=== PATIENT | female | born 1955 | race African-American/Black ===

== ENCOUNTER 2018-10-13 10:42 | Outpatient (CLI) | payer MEDICARE ==
--- NOTE | 2018-10-13 11:36 | RAD ---
TWO VIEWS LEFT KNEE: History: Pain. Comparison: None. FINDINGS: Moderate tricompartment degenerative change. No joint effusion. No fracture or malalignment. IMPRESSION: Moderate tricompartment degenerative change. POS: ANNIA
== END 2018-10-13 10:43 | disposition home or self-care (01) ==
LOC: SCSRAD 10:42
PROVIDERS: ATTEND Nurse Practitioner Family
DX: M25.562 Pain in left knee (principal); M17.12 Unilateral primary osteoarthritis, left knee

== ENCOUNTER 2020-07-17 08:01 | Outpatient (CLI) | payer MEDICARE ==
[2020-07-18 09:25] LABS: SARS-CoV-2 MS2 Positive; SARS-CoV-2 N Gene Negative; SARS-CoV-2 S Gene Negative; SARS-CoV-2 by NAA Not Detected (NotDetected); SARS-CoV-2 orf1ab Negative
== END 2020-07-17 08:02 | disposition home or self-care (01) ==
LOC: LABBT 08:01
PROVIDERS: ATTEND Urology
DX: Z01.812 Encounter for preprocedural laboratory examination (principal); Z20.828 Contact with and (suspected) exposure to other viral communicable diseases; N15.1 Renal and perinephric abscess
CPT/HCPCS: 86850; 86900; 86901; 87635; U0003

== ENCOUNTER 2020-07-17 17:00 | Inpatient (IN) | payer MEDICARE ==
[2020-07-20] MEDS ORDERED: Calcium Chloride 1 GM/10 ML Abboject SYRINGE ONE (10:27)
[2020-07-20] MEDS ORDERED: Dexamethasone 20 MG/5 ML VIAL ONE (10:27)
[2020-07-20] MEDS ORDERED: Glycopyrrolate 0.2 MG/ML 5 ML SYRINGE ONE ×2 (10:27)
[2020-07-20] MEDS ORDERED: Rocuronium Bromide 10 MG/ML (10ML VIAL) ONE (10:27)
[2020-07-20] MEDS ORDERED: Ondansetron PF 4 MG/2 ML Vial ONE (10:27)
[2020-07-20] MEDS ORDERED: Lidocaine 1% PF 5 ML VIAL ONE (10:27)
[2020-07-20] MEDS ORDERED: PHENYLEPHRINE-NS 100 MCG/ML 10 ML SYRINGE ONE (10:27)
[2020-07-20] MEDS ORDERED: ePHEDrine/0.9% NaCl/PF SYRINGE 50 mg/10 ml ONE (10:27)
[2020-07-20] MEDS ORDERED: PROPOFOL 200 MG/20 ML VIAL ONE (10:27)
[2020-07-20] MEDS ORDERED: cefOXitin Sodium/Dextrose 2 GM/50 ML BAG ONE ×2 (11:25→16:19)
[2020-07-20] MEDS ORDERED: Phenylephrine 10 MG/ML VIAL ONE (12:34)
[2020-07-20] MEDS ORDERED: Fentanyl 250 MCG/5 ML VIAL ONE (12:34)
[2020-07-20] MEDS ORDERED: Lidocaine 2% Jelly 5 ML TUBE ONE (12:34)
[2020-07-20] MEDS ORDERED: Midazolam HCl 5 mg/5 ml Vial ONE (15:45)
[2020-07-20] MEDS ORDERED: Neomycin-Polymyxin 1 ML AMP ONE ×2 (15:52→15:54)
[2020-07-20] MEDS ORDERED: DOPamine 400 MG/D5W 250 ML 250 ML ONE (16:09)
[2020-07-20] MEDS ORDERED: diphenhydrAMINE 50 MG/ML VIAL IVP PRN (16:47)
[2020-07-20] MEDS ORDERED: hydrALAZINE 20 MG/ML VIAL SLOW IVP PRN (16:47)
[2020-07-20] MEDS ORDERED: Zolpidem Tartrate 5 MG TAB PO PRN (16:47)
[2020-07-20] MEDS ORDERED: Ondansetron PF 4 MG/2 ML Vial IVP PRN ×2 (16:47→17:45)
[2020-07-20] MEDS ORDERED: SUGAMMADEX SODIUM 200 MG/2 ML VIAL ONE (17:05)
[2020-07-20] MEDS ORDERED: Promethazine HCl 25 MG/ML VIAL IM PRN (17:24)
[2020-07-20] MEDS ORDERED: Promethazine HCl 25 MG/ML VIAL SLOW IVP PRN (17:24)
[2020-07-20] MEDS ORDERED: HYDROmorphone 2 MG/ML VIAL SLOW IVP PRN (17:24)
[2020-07-20] MEDS ORDERED: Ondansetron HCl/PF 4 MG/2 ML Vial IVP PRN (17:24)
[2020-07-20] MEDS ORDERED: Fentanyl 100 MCG/2 ML VIAL ONE ×2 (17:29→17:56)
[2020-07-20] MEDS ORDERED: diphenhydrAMINE 50 MG/ML VIAL IM/IV PRN (17:45)
[2020-07-20] MEDS ORDERED: Morphine Sulfate 100 MG in Dextrose 5% in Water 98 ML IV SCH (17:45)
[2020-07-20] MEDS ORDERED: diphenhydrAMINE 25 MG CAP PO PRN (17:45)
[2020-07-20] MEDS ORDERED: Naloxone HCl 0.4 mg/ml Vial IV PRN (17:45)
[2020-07-20] MEDS ORDERED: Gabapentin 300 MG CAP PO SCH (17:45)
[2020-07-20] MEDS ORDERED: Gabapentin 300 MG CAP ONE (19:08)
[2020-07-20] MEDS: Famotidine/PF 20 mg/2ml Vial SLOW IVP SCH (21:44)
[2020-07-20] MEDS: Docusate 100 MG CAP PO SCH (21:44)
[2020-07-20] MEDS: Gabapentin 300 MG CAP PO SCH (21:44)
[2020-07-20] MEDS: Sodium Chloride 0.9% 1,000 ML IV SCH (22:20)
--- NOTE | 2020-07-20 23:17 | OP ---
DATE OF PROCEDURE: 07/20/2020 PREOPERATIVE DIAGNOSIS: Left renal abscess, xanthogranulomatous pyelonephritis kidney. POSTOPERATIVE DIAGNOSES: Left renal abscess, xanthogranulomatous pyelonephritis kidney. PROCEDURES PERFORMED: Simple left nephrectomy, abdominal washout, splenectomy. ANESTHESIA: General. COMPLICATIONS: Injury to splenic vein, requiring splenectomy. OXYGRAPH OPERATOR SURGEON: Lionel Herron MD SPECIMENS: Spleen, left kidney. BLOOD LOSS: 400 mL. DESCRIPTION OF PROCEDURE: After informed consent, the patient was taken to the operating room, transferred to the table on her own power. Anesthesia was established. A time-out was performed ensuring the correct patient, site, and procedure. Preoperative antibiotics were administered. She was prepped and draped in the supine position. I began by making an anterior subcostal incision on the left side, which was carried down to fascia with electrocautery. Fascia was then carefully entered and opened for the entirety of the incision, which was extended just across midline. Small bowel was packed medially. The colon was noted to be densely adherent to the anterior surface of the kidney. This was dissected carefully off the kidney. Once I was able to identify Gerota fascia, we were able to completely deflect the colon. We then attempted to bluntly dissect over the superior aspect of the kidney, however, encountered bleeding, which were determined to be from the splenic vein. This was clamped and packed away. I was able to open Gerota's and dissect down upon the renal hilum, which was not densely adherent. The renal vein was circumferentially dissected and controlled with a stapler. The artery was then identified, dissected, and controlled with stapler as well. The lower pole of the kidney was then developed using electrocautery and LigaSure. I was then able to trace up along the psoas muscle superiorly. The superior pole of the kidney was developed using electrocautery and LigaSure to control the adrenal vein. The kidney was then completely mobilized requiring cautery to take down the previous nephrostomy tube site. The kidney was then passed off the specimen. An area of necrotic tissue in the posterior superior aspect was removed with LigaSure and included with specimen. The renal fossa was copiously irrigated with 2 L of saline. The first liter included irrigation. We then called Dr. Flores to perform a splenectomy. This will be dictated separately. The colon and small bowel were then inspected, noting no injuries. There was no active bleeding and so a drain was brought out through the left lower quadrant with the tail of the drain into the renal fossa. Omentum was replaced over the intestines. Fascia was closed in 2 layers with PDS suture. Skin was then closed with karson leaving enough space for Telfa leonides. This was then dressed with gauze and tape. She was then awoken from anesthesia, transferred back to her hospital bed, and taken to PACU in stable condition, where she will be admitted overnight. Job ID: [id number]
[2020-07-21] MEDS: cefOXitin Sodium/Dextrose,Iso 2 GM in Premix Bag 1 BAG IVPB SCH ×4 (00:40→23:56)
[2020-07-21 01:45] VITALS: BMI 27.6
[2020-07-21] MEDS: Sodium Chloride 0.9% 1,000 ML IV SCH ×4 (02:05→23:52)
[2020-07-21 06:41] LABS: Hemoglobin 9.1 g/dL (12.0-16.0); Mean Corpuscular HGB CONC 33.7 g/dL (32.0-36.0); Mean Corpuscular Hemoglobin 30.9 pg (27.0-31.0); Mean Corpuscular Volume 91.6 fL (78.0-98.0); Mean Platelet Volume 6.4 fL (7.4-10.4); Platelet Count 209 thou/uL (130-400); Red Blood Cell (RBC) Count 2.93 mill/uL (4.20-5.40); White Blood Cell (WBC) Count 33.3 thou/uL (4.8-10.8)
[2020-07-21 06:48] LABS: Anion Gap 11 mmol/L (10-20); BUN (Urea Nitrogen) 11 mg/dL (9.8-20.1); Calc. Creatinine Clearance 71 mL/min (70-130); Calcium 8.2 mg/dL (7.8-10.44); Carbon Dioxide 22 mmol/L (23-31); Chloride 110 mmol/L (98-107); Estimated GFR-MDRD 67; Glucose 187 mg/dL (80-115); Potassium 4.5 mmol/L (3.5-5.1); Sodium 138 mmol/L (136-145)
--- NOTE | 2020-07-21 08:24 | OP ---
DATE OF PROCEDURE: 07/20/2020 PREOPERATIVE DIAGNOSIS: Splenic hemorrhage. POSTOPERATIVE DIAGNOSIS: Splenic hemorrhage. PROCEDURE PERFORMED: Splenectomy. INDICATIONS FOR PROCEDURE: A 64-year-old woman undergoing urological procedure. I was asked to consult intraoperatively for splenectomy due to incidental splenic hemorrhage. DESCRIPTION OF OPERATION: The patient is already under anesthesia with open abdomen. I placed 2 laparotomy packs above the spleen to have this elevated. Two short gastric arteries were divided between clamps, right next to the superior pole of the spleen and ligated with stick tie of 3-0 silk. A clamp placed across the splenic hilum and spleen was amputated and passed off the operative field for formal transmission to Pathology. The hilar vessels were then ligated with a stick tie of 2-0 silk and reinforced with a clip. The splenic fossa was inspected for good hemostasis. The pancreatic tail was kept off harm's way. I turned the patient over to Dr. Vyas who continued with her urological procedure. Job ID: [id number]
[2020-07-21] MEDS ORDERED: Dextrose 50% Abboject 50 ML SYRINGE SLOW IVP PRN (08:52)
[2020-07-21] MEDS ORDERED: Dextrose 5% in Water 1,000 ML IV PRN (08:52)
[2020-07-21] MEDS ORDERED: Insulin Regular 300 UNITS/3 ML VIAL SC PRN (08:52)
[2020-07-21] MEDS ORDERED: Prevnar 13-Val Conj/PF 0.5 ML SYRINGE IM ONE (09:00)
--- NOTE | 2020-07-21 09:16 | PRG ---
DATE OF SERVICE: 07/21/2020 SUBJECTIVE: No acute events overnight. Reports [id number] pain along her incision. She is not having any further flank pain. No nausea, vomiting, trouble breathing, chest pains, or headaches. She has been up walking. No flatus or bowel movements yet. OBJECTIVE: VITAL SIGNS: Afebrile. Vitals are stable. Drain output 115. Urine output overnight 925. ABDOMEN: Soft, nondistended, appropriately tender. Dressing in place. Not soiled. : Aquino catheter in place draining yellow urine. EXTREMITIES: No peripheral edema. LABORATORY DATA: Reviewed. Hemoglobin 9.1. Creatinine 1.01. ASSESSMENT AND PLAN: Postop day 1, left simple nephrectomy for xanthogranulomatous pyelonephritis kidney with renal abscess, splenectomy. She will be receiving post splenectomy vaccinations through the weekend. Routine postop care, out of bed, ambulate, Aquino out, incentive spirometry, deep venous thrombosis prophylaxis. Continue antibiotics given her renal abscess. Glucose 187, starting Accu-Cheks, and may start sliding scale insulin. Job ID: [id number]
[2020-07-21] MEDS: Docusate 100 MG CAP PO SCH ×2 (09:41→20:45)
[2020-07-21] MEDS: Enoxaparin Sodium 40 MG/0.4 ML SYRINGE SC SCH (09:42)
[2020-07-21] MEDS: Gabapentin 300 MG CAP PO SCH ×3 (09:42→20:45)
[2020-07-21] MEDS: Bisoprolol Fumarate/HCTZ 10 mg/6.25 mg Tablet PO SCH (09:42)
[2020-07-21] MEDS: Famotidine/PF 20 mg/2ml Vial SLOW IVP SCH ×2 (09:43→20:45)
[2020-07-21 09:48] LABS: Band 16 % (5-11); Lymphocytes 3 % (21-51); MDiff Complete? YES; Monocytes 3 % (0-10); Neutrophil 78 % (42-75); Platelet Morphology Comment Appears Adequate; Polychromasia SLIGHT = 2-3 cells (100X) (0-2/hpf)
[2020-07-21] MEDS ORDERED: traMADol HCl 50 MG TAB PO PRN (12:27)
[2020-07-21] MEDS ORDERED: Fentanyl 100 MCG/2 ML VIAL SLOW IVP PRN (12:28)
[2020-07-22] MEDS: Sodium Chloride 0.9% 1,000 ML IV SCH ×3 (02:53→18:31)
[2020-07-22 07:17] LABS: #Eosinphils 0.1 thou/uL (0.0-0.7); #Lymphocytes 2.9 thou/uL (1.20-3.40); #Monocytes 1.8 thou/uL (0.11-0.59); #Neutrophils 23.3 thou/uL (1.40-6.50); %Basophils 0.1 % (0.0-1.0); %Eosinophils 0.3 % (0.0-10.0); %Lymphocytes 10.3 % (21.0-51.0); %Monocytes 6.5 % (0.0-10.0); %Neutrophils 82.8 % (42.0-75.0); Mean Corpuscular Hemoglobin 30.8 pg (27.0-31.0); Mean Corpuscular Volume 93.5 fL (78.0-98.0); Mean Platelet Volume 6.5 fL (7.4-10.4); Platelet Count 218 thou/uL (130-400); RBC Distribution Width 15.5 % (11.5-14.5); Red Blood Cell (RBC) Count 2.59 mill/uL (4.20-5.40); White Blood Cell (WBC) Count 28.2 thou/uL (4.8-10.8)
[2020-07-22 07:21] LABS: Anion Gap 13 mmol/L (10-20); BUN (Urea Nitrogen) 9 mg/dL (9.8-20.1); Calc. Creatinine Clearance 76 mL/min (70-130); Calcium 7.8 mg/dL (7.8-10.44); Carbon Dioxide 18 mmol/L (23-31); Chloride 114 mmol/L (98-107); Estimated GFR-MDRD 72; Glucose 105 mg/dL (80-115); Magnesium 1.9 mg/dL (1.6-2.6); Phosphorus 2.5 mg/dL (2.3-4.7); Potassium 3.7 mmol/L (3.5-5.1); Sodium 141 mmol/L (136-145)
[2020-07-22] MEDS ORDERED: Meningococcal Vaccine 0.5ML VIAL (MENACTRA) IM ONE (08:15)
[2020-07-22] MEDS: Bisoprolol Fumarate/HCTZ 10 mg/6.25 mg Tablet PO SCH (09:59)
[2020-07-22] MEDS: Enoxaparin Sodium 40 MG/0.4 ML SYRINGE SC SCH (10:03)
[2020-07-22] MEDS: Famotidine/PF 20 mg/2ml Vial SLOW IVP SCH ×2 (10:05→20:28)
[2020-07-22] MEDS: Docusate 100 MG CAP PO SCH ×2 (10:06→20:28)
[2020-07-22] MEDS: Gabapentin 300 MG CAP PO SCH ×3 (10:06→20:29)
--- NOTE | 2020-07-22 11:37 | PRG ---
DATE OF SERVICE: 07/22/2020 SUBJECTIVE: The patient states that she is hurting quite a bit. She is having left flank pain. She still has an appetite, although it is not great. She has not passed any gas. She denies any fevers. She is not getting any worse than she was yesterday and states her pain is stable. She is just very sore. She has not really gotten up out of bed very much. OBJECTIVE: VITAL SIGNS: Temperature 98.3, pulse 75, respirations 16, blood pressure 94/60, and saturation 96% on 2 L nasal cannula. GENERAL: Appears somewhat uncomfortable and tired, but otherwise answering questions appropriately. CARDIOVASCULAR: Regular rate and rhythm. ABDOMEN: Soft, mildly tender to palpation. Nondistended. Incision is currently dressed. MAREK drain with serosanguineous fluid. GENITOURINARY: No catheter in place. EXTREMITIES: No edema. LABORATORY EVALUATION: Full set of labs are in the [employer] [facility], which I have reviewed. Of note, the patient's white count is decreased from 33,000 to 28,000, platelet count of 218. Creatinine of 0.95. ASSESSMENT AND PLAN: A 64-year-old black female, who has an infected nonfunctioning likely early XGP type kidney on the left, status post left simple nephrectomy and splenectomy due to splenic hilum injury, postoperative day 2, recovering relatively well. She is using a fair amount of narcotic pain medication to try to keep her pain controlled, which is understandable. However, this will likely cause possible ileus. I have recommended that she attempt to at least sit in a chair at minimum today if not being able to walk around, which should help try to maintain her bowel movements or bowel function. She does have Colace ordered, but I may start her on MiraLAX another day. If she is not passing any gas to try and improve her bowel function. Her white count is decreasing. She can remain on a regular diet for the time being. However, if she starts to become nauseated or starts to get abdominally distended, we will have to put her to n.p.o. with IV fluids. Otherwise, I recommended she keep her hydration up, eat only what she feels like, use her incentive spirometer and attempt to get out of bed with assistance. I will continue to follow along and make recommendations. Dr. Vyas will resume care back on Friday. Job ID: [id number]
[2020-07-22] MEDS: HYDROcodone/Acetaminophen 7.5/325 mg Tablet PO PRN ×2 (14:47→20:36)
[2020-07-22 18:44] LABS: PTT 43.7 sec (22.9-36.1)
[2020-07-22 18:48] LABS: INR-International Normal Ratio 1.3; Prothrombin Time 16.7 sec (12.0-14.7)
--- NOTE | 2020-07-22 22:31 | PRG ---
DATE OF SERVICE: 07/22/2020 SUBJECTIVE: The patient was seen during morning rounds. Awake, alert, in no distress. The patient is postop day #1 status post left nephrectomy and exploratory laparotomy with splenectomy. The patient still is not passing gas or having bowel movements. The patient's pain is currently controlled at this time. The patient is tolerating a regular diet. The patient denies any nausea or vomiting. OBJECTIVE: VITAL SIGNS: Temperature 98.3, pulse 75, respirations 16, SpO2 of 96% on room air, blood pressure 94/60. GENERAL: Well-appearing middle-aged female, awake, alert, no distress. RESPIRATORY: Good inspiratory and expiratory effort. CARDIAC: Regular rate, regular rhythm. ABDOMEN: Soft, mildly tender, nondistended. Dressing is clean, dry, and intact, MAREK drain with serosanguineous fluid. LABORATORY DATA: WBC 28.2, RBC 2.59, hemoglobin 8.0, hematocrit 24.2. Sodium 141, potassium 3.7, BUN 9, creatinine 0.95, estimated GFR 72. ASSESSMENT: 1. Postop day #1, left nephrectomy for a left renal abscess. 2. Exploratory laparotomy with splenectomy. PLAN: Diet as tolerated. Continue supportive care and pain regimen. Increase ambulation as much as possible. We will continue to monitor urinary output. Repeat labs tomorrow. Job ID: [id number]
[2020-07-23] MEDS: Sodium Chloride 0.9% 1,000 ML IV SCH ×3 (02:52→20:05)
[2020-07-23 05:56] LABS: Hemoglobin 7.3 g/dL (12.0-16.0); Mean Corpuscular HGB CONC 31.9 g/dL (32.0-36.0); Mean Corpuscular Hemoglobin 29.4 pg (27.0-31.0); Mean Corpuscular Volume 92.2 fL (78.0-98.0); Mean Platelet Volume 6.8 fL (7.4-10.4); Platelet Count 230 thou/uL (130-400); RBC Distribution Width 15.5 % (11.5-14.5); Red Blood Cell (RBC) Count 2.46 mill/uL (4.20-5.40); White Blood Cell (WBC) Count 23.5 thou/uL (4.8-10.8)
[2020-07-23] MEDS ORDERED: Acthib 0.5 ML VIAL IM ONE (08:15)
[2020-07-23] MEDS: Docusate 100 MG CAP PO SCH ×2 (09:13→20:07)
[2020-07-23] MEDS: Bisoprolol Fumarate/HCTZ 10 mg/6.25 mg Tablet PO SCH (09:14)
[2020-07-23] MEDS: Famotidine/PF 20 mg/2ml Vial SLOW IVP SCH ×2 (09:15→20:07)
[2020-07-23] MEDS: Enoxaparin Sodium 40 MG/0.4 ML SYRINGE SC SCH (09:15)
[2020-07-23] MEDS: Gabapentin 300 MG CAP PO SCH ×3 (09:15→20:08)
[2020-07-23] MEDS: HYDROcodone/Acetaminophen 7.5/325 mg Tablet PO PRN ×3 (09:23→20:06)
[2020-07-23 13:40] LABS: #Lymphocytes 3.2 thou/uL (1.20-3.40); #Monocytes 1.8 thou/uL (0.11-0.59); #Neutrophils 19.1 thou/uL (1.40-6.50); %Basophils 0.1 % (0.0-1.0); %Eosinophils 0.2 % (0.0-10.0); %Lymphocytes 13.3 % (21.0-51.0); %Monocytes 7.5 % (0.0-10.0); Hemoglobin 7.2 g/dL (12.0-16.0); Mean Corpuscular HGB CONC 32.6 g/dL (32.0-36.0); Mean Corpuscular Hemoglobin 29.7 pg (27.0-31.0); Mean Corpuscular Volume 91.3 fL (78.0-98.0); Mean Platelet Volume 6.7 fL (7.4-10.4); Platelet Count 260 thou/uL (130-400); RBC Distribution Width 15.5 % (11.5-14.5); Red Blood Cell (RBC) Count 2.41 mill/uL (4.20-5.40); White Blood Cell (WBC) Count 24.2 thou/uL (4.8-10.8)
--- NOTE | 2020-07-23 14:46 | PRG ---
DATE OF SERVICE: 07/23/2020 SUBJECTIVE: The patient states that she is doing a lot better today. She was started on oral pain medications and states this is helping better than her CUSTOMER ACCOUNT REPRESENTATIVE. She did get up and walk some, although she has not walked a lot. She is passing gas, but has not had a bowel movement. She is still tolerating a diet. OBJECTIVE: VITAL SIGNS: Temperature 99.1, pulse 107, respirations 18, blood pressure 105/62, saturation 95% on 1 L nasal cannula. GENERAL: No apparent distress. Communicative and alert. CARDIOVASCULAR: Sinus tachycardia. ABDOMEN: Soft, minimally tender to palpation, nondistended. MAREK drain is in place with serosanguineous fluid. Incision dressed. EXTREMITIES: No edema. LABORATORY EVALUATION: The full set of labs are in the [employer] system, which I have reviewed. Of note, the patient's white count is 24.2. ASSESSMENT AND PLAN: A 64-year-old black female with a large infected left kidney, status post nephrectomy and splenectomy, postoperative day #3, doing relatively well. She seems to be improving quite well. Her elevated white count may be due to her recent splenectomy or due to a possible soft tissue infection, although she is not having any fevers. I would keep a close eye on this and plan for repeat labs in the morning. Dr. Vyas will be resuming care tomorrow and can continue to follow the patient. From my standpoint, there is no need for any recurrent imaging at this time and she does have a drain in place, which should minimize risk for infections. I do feel this is most likely probably secondary to her spleen removal. She will continue her incentive spirometer and continue to ambulate, and she does appear to be having return of bowel function. Job ID: [id number]
[2020-07-24 05:35] LABS: #Eosinphils 0.1 thou/uL (0.0-0.7); #Lymphocytes 3.3 thou/uL (1.20-3.40); #Monocytes 1.7 thou/uL (0.11-0.59); #Neutrophils 18.7 thou/uL (1.40-6.50); %Basophils 0.2 % (0.0-1.0); %Eosinophils 0.3 % (0.0-10.0); %Lymphocytes 13.8 % (21.0-51.0); %Monocytes 7.1 % (0.0-10.0); %Neutrophils 78.7 % (42.0-75.0); Hemoglobin 7.3 g/dL (12.0-16.0); Mean Corpuscular HGB CONC 31.3 g/dL (32.0-36.0); Mean Corpuscular Hemoglobin 29.4 pg (27.0-31.0); Mean Corpuscular Volume 93.7 fL (78.0-98.0); Mean Platelet Volume 7.3 fL (7.4-10.4); Platelet Count 240 thou/uL (130-400); RBC Distribution Width 16.1 % (11.5-14.5); Red Blood Cell (RBC) Count 2.47 mill/uL (4.20-5.40); White Blood Cell (WBC) Count 23.8 thou/uL (4.8-10.8)
[2020-07-24 05:57] LABS: Anion Gap 12 mmol/L (10-20); BUN (Urea Nitrogen) 5 mg/dL (9.8-20.1); Calc. Creatinine Clearance 104 mL/min (70-130); Calcium 7.8 mg/dL (7.8-10.44); Carbon Dioxide 21 mmol/L (23-31); Chloride 108 mmol/L (98-107); Estimated GFR-MDRD Greater than 90; Glucose 84 mg/dL (80-115); Potassium 3.3 mmol/L (3.5-5.1); Sodium 138 mmol/L (136-145)
[2020-07-24] MEDS: Sodium Chloride 0.9% 1,000 ML IV SCH ×3 (07:26→18:22)
[2020-07-24] MEDS ORDERED: FLU VACC QS2020-21(6MOS UP)/PF 60 MCG/0.5 ML SYRINGE IM ONE (08:15)
[2020-07-24] MEDS ORDERED: Potassium Chloride 20 MEQ TAB PO SCH (08:45)
[2020-07-24] MEDS: Famotidine/PF 20 mg/2ml Vial SLOW IVP SCH ×2 (09:31→20:15)
[2020-07-24] MEDS: Gabapentin 300 MG CAP PO SCH ×3 (09:32→20:16)
[2020-07-24] MEDS: Docusate 100 MG CAP PO SCH ×2 (09:32→20:15)
[2020-07-24] MEDS: Bisoprolol Fumarate/HCTZ 10 mg/6.25 mg Tablet PO SCH (09:32)
[2020-07-24] MEDS: Enoxaparin Sodium 40 MG/0.4 ML SYRINGE SC SCH (09:32)
[2020-07-24] MEDS: HYDROcodone/Acetaminophen 7.5/325 mg Tablet PO PRN ×2 (09:36→18:21)
--- NOTE | 2020-07-24 13:31 | PRG ---
DATE OF SERVICE: 07/24/2020 SUBJECTIVE: No acute events overnight. Still reports moderate discomfort along the incision. No shortness of breath, fevers, or chest pains. OBJECTIVE: VITAL SIGNS: Afebrile. Vitals stable. Urine output has not been adequately measured. LUNGS: Unlabored breathing. Symmetric chest expansion. ABDOMEN: Soft, nondistended, appropriately tender. Incision healthy. Lucy in place. Drain in position with minimal output. LABORATORY DATA: White count trending down at 23.8 today, still with left shift of 78.7. Potassium 3.3 and creatinine 0.69. ASSESSMENT AND PLAN: Postoperative day 4 of left simple nephrectomy for xanthogranulomatous pyelonephritis kidney and abscess. Routine postop care, out of bed, ambulate, pain control, DVT and GI prophylaxis. I would like the drain to remain until her leukocytosis resolves further. DISPOSITION: I anticipate she will be discharged home within the next 48 hours. Job ID: [id number]
[2020-07-24 14:13] LABS: Actual Bicarbonate (HCO3a) 21.3 mEq/L (22-28); Analyzer IN Cardio OR; Base Excess (BEa) -3.8 mEq/L (-2.0 to +3.0); CO2 Tension 38.7 mmHg (35.0-45.0); Calcium, Ionized (arterial) 1.63 mmol/L (1.12-1.30); Carboxyhemoglobin (COHb) 0.7 gm% (0.0-3.0); Hemoglobin (Hb) 8.5 g/dL (12.0-16.0); O2 Tension (PaO2), arterial 198.6 mmHg (> 80.0); Potassium - ABG Lab 3.38 mmol/L (3.70-5.30); pH, Arterial 7.36 (7.35-7.45)
[2020-07-24 14:21] LABS: Puncture Site Arterial Line
[2020-07-25] MEDS: Sodium Chloride 0.9% 1,000 ML IV SCH (05:44)
[2020-07-25 05:58] LABS: #Eosinphils 0.1 thou/uL (0.0-0.7); #Lymphocytes 3.1 thou/uL (1.20-3.40); #Monocytes 1.4 thou/uL (0.11-0.59); %Eosinophils 0.4 % (0.0-10.0); %Lymphocytes 14.2 % (21.0-51.0); %Monocytes 6.4 % (0.0-10.0); Mean Corpuscular Hemoglobin 29.3 pg (27.0-31.0); Mean Corpuscular Volume 91.7 fL (78.0-98.0); Mean Platelet Volume 6.9 fL (7.4-10.4); Platelet Count 319 thou/uL (130-400); RBC Distribution Width 16.2 % (11.5-14.5); White Blood Cell (WBC) Count 21.5 thou/uL (4.8-10.8)
[2020-07-25 06:18] LABS: Anion Gap 14 mmol/L (10-20); BUN (Urea Nitrogen) 6 mg/dL (9.8-20.1); Calc. Creatinine Clearance 101 mL/min (70-130); Calcium 7.7 mg/dL (7.8-10.44); Carbon Dioxide 23 mmol/L (23-31); Chloride 108 mmol/L (98-107); Estimated GFR-MDRD Greater than 90; Glucose 75 mg/dL (80-115); Sodium 142 mmol/L (136-145)
[2020-07-25 06:39] LABS: Potassium 2.9 mmol/L (3.5-5.1)
--- NOTE | 2020-07-25 07:13 | EKG ---
Test Reason : PREOP Blood Pressure : / mmHG Vent. Rate : 070 BPM Atrial Rate : 070 BPM P-R Int : 148 ms QRS Dur : 124 ms QT Int : 450 ms P-R-T Axes : 061 -13 012 degrees QTc Int : 486 ms Normal sinus rhythm Right bundle branch block Abnormal ECG No previous ECGs available Confirmed by ELIANA ROTHMAN MD ([id number]) on 07/25/2020 7:13:24 AM Referred By: HAWK Confirmed By:ELIANA ROTHMAN MD
[2020-07-25] MEDS ORDERED: Potassium Chloride 40 MEQ in Sodium Chloride 0.9% 250 ML 250 ML IVPB SCH (08:00)
[2020-07-25] MEDS: Famotidine/PF 20 mg/2ml Vial SLOW IVP SCH ×2 (09:40→20:01)
[2020-07-25] MEDS: Enoxaparin Sodium 40 MG/0.4 ML SYRINGE SC SCH (09:40)
[2020-07-25] MEDS: Bisoprolol Fumarate/HCTZ 10 mg/6.25 mg Tablet PO SCH (09:40)
[2020-07-25] MEDS: Docusate 100 MG CAP PO SCH ×2 (09:40→20:01)
[2020-07-25] MEDS: Gabapentin 300 MG CAP PO SCH ×3 (09:44→20:01)
[2020-07-25] MEDS: Potassium Chloride 40 MEQ in Sodium Chloride 0.45% 1,000 ML IV SCH ×2 (11:11→20:01)
[2020-07-25] MEDS ORDERED: Acetaminophen 500 MG TAB PO SCH (12:00)
[2020-07-25 13:41] LABS: Anion Gap 13 mmol/L (10-20); BUN (Urea Nitrogen) 6 mg/dL (9.8-20.1); Calc. Creatinine Clearance 101 mL/min (70-130); Calcium 7.7 mg/dL (7.8-10.44); Carbon Dioxide 23 mmol/L (23-31); Chloride 108 mmol/L (98-107); Estimated GFR-MDRD Greater than 90; Glucose 79 mg/dL (80-115); Potassium 3.5 mmol/L (3.5-5.1); Sodium 140 mmol/L (136-145)
--- NOTE | 2020-07-25 13:48 | PRG ---
DATE OF SERVICE: 07/25/2020 SUBJECTIVE: No acute events overnight. The patient tells me that she is feeling fatigued and unmotivated. She has been out of bed and is having bowel movements overnight. She denies flank pain, nausea, or fevers. OBJECTIVE: VITAL SIGNS: Afebrile, vitals stable. Drain 185, serosanguineous. LUNGS: Unlabored breathing, symmetric chest expansion. ABDOMEN: Soft, nondistended, appropriately tender over the incision site. SKIN: Warm and dry. No peripheral edema. LABORATORY DATA: Potassium is 2.9, this is after receiving 40 mEq oral yesterday for potassium 3.3. Hemoglobin has continued to drift slowly over the past few days, it is now 7.0. White count has improved to 21.5. ASSESSMENT: Postoperative day 5 from left simple nephrectomy for xanthogranulomatous pyelonephritis kidney with renal abscess. 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 PLAN: 1. Replacing potassium 40 mEq IV and then transitioning to half-normal saline with potassium. 2. Transfuse 1 unit after potassium today. 3. Reassess lab work this afternoon, and if the patient is stable overnight, may discharge home tomorrow. Job ID: [id number]
[2020-07-25 18:13] LABS: Hemoglobin 9.5 g/dL (12.0-16.0); Mean Corpuscular HGB CONC 33.4 g/dL (32.0-36.0); Mean Corpuscular Hemoglobin 30.6 pg (27.0-31.0); Mean Corpuscular Volume 91.6 fL (78.0-98.0); Mean Platelet Volume 7.2 fL (7.4-10.4); Platelet Count 327 thou/uL (130-400); Red Blood Cell (RBC) Count 3.09 mill/uL (4.20-5.40)
[2020-07-26] MEDS: Potassium Chloride 40 MEQ in Sodium Chloride 0.45% 1,000 ML IV SCH (06:05)
[2020-07-26 08:25] LABS: #Eosinphils 0.1 thou/uL (0.0-0.7); #Lymphocytes 2.6 thou/uL (1.20-3.40); #Monocytes 1.3 thou/uL (0.11-0.59); #Neutrophils 16.1 thou/uL (1.40-6.50); %Basophils 0.1 % (0.0-1.0); %Eosinophils 0.6 % (0.0-10.0); %Monocytes 6.6 % (0.0-10.0); %Neutrophils 79.7 % (42.0-75.0); Hemoglobin 9.3 g/dL (12.0-16.0); Mean Corpuscular Hemoglobin 29.5 pg (27.0-31.0); Mean Corpuscular Volume 91.9 fL (78.0-98.0); Mean Platelet Volume 6.9 fL (7.4-10.4); Platelet Count 386 thou/uL (130-400); Red Blood Cell (RBC) Count 3.14 mill/uL (4.20-5.40); White Blood Cell (WBC) Count 20.2 thou/uL (4.8-10.8)
[2020-07-26 08:42] LABS: Anion Gap 16 mmol/L (10-20); BUN (Urea Nitrogen) 6 mg/dL (9.8-20.1); Calc. Creatinine Clearance 98 mL/min (70-130); Carbon Dioxide 20 mmol/L (23-31); Chloride 105 mmol/L (98-107); Estimated GFR-MDRD Greater than 90; Glucose 72 mg/dL (80-115); Potassium 3.8 mmol/L (3.5-5.1); Sodium 137 mmol/L (136-145)
[2020-07-26] MEDS: Famotidine/PF 20 mg/2ml Vial SLOW IVP SCH (10:34)
[2020-07-26] MEDS: Docusate 100 MG CAP PO SCH (10:35)
[2020-07-26] MEDS: Gabapentin 300 MG CAP PO SCH (10:35)
[2020-07-26] MEDS: Enoxaparin Sodium 40 MG/0.4 ML SYRINGE SC SCH (10:35)
[2020-07-26] MEDS: Bisoprolol Fumarate/HCTZ 10 mg/6.25 mg Tablet PO SCH (10:35)
[2020-07-26 11:19] VITALS: BP 130/81; TEMP 98.6
== END 2020-07-26 15:30 | disposition home or self-care (01) | DRG 656 ==
LOC: SURG A 07-20 10:02
PROVIDERS: ADMIT Urology; ATTEND Urology
PROC: 0TT10ZZ Resection of Left Kidney, Open Approach (ICD-10-PCS; principal; 2020-07-20)
PROC: 07TP0ZZ Resection of Spleen, Open Approach (ICD-10-PCS; 2020-07-20)
DX: C64.2 Malignant neoplasm of left kidney, except renal pelvis (principal); N15.1 Renal and perinephric abscess; N11.8 Other chronic tubulo-interstitial nephritis; D76.3 Other histiocytosis syndromes; D78.02 Intraoperative hemorrhage and hematoma of the spleen complicating other procedure; Z20.828 Contact with and (suspected) exposure to other viral communicable diseases; I10 Essential (primary) hypertension; M19.90 Unspecified osteoarthritis, unspecified site; F32.9 Major depressive disorder, single episode, unspecified; Y83.8 Other surgical procedures as the cause of abnormal reaction of the patient, or of later complication, without mention of misadventure at the time of the procedure; Z90.710 Acquired absence of both cervix and uterus; Z79.899 Other long term (current) drug therapy
CPT/HCPCS: 36415; 36416; 36430; 80048; 82805; 83605; 83735; 84100; 85025; 85027; 85610; 85730; 86850; 86900; 86901; 87635; 88305; 88307; 90471; 90648; 90670; 90733; 93005; 93010; G0009; J0694; J1100; J1265; J1650; J1815; J2250; J2370; J2405; J2704; J3010; J3480; J7050; P9016; S0028; U0003

== ENCOUNTER 2020-08-17 13:53 | Inpatient (IN) | payer MEDICARE ==
[2020-08-17] MEDS ORDERED: metroNIDAZOLE 500 MG/100 ML BAG ONE (17:08)
[2020-08-17] MEDS ORDERED: Morphine 4 MG/ML VIAL ONE (17:08)
[2020-08-17] MEDS ORDERED: Ondansetron PF 4 MG/2 ML Vial ONE (17:10)
[2020-08-17] MEDS ORDERED: Cefepime 2 GM VIAL ONE (17:10)
[2020-08-17] MEDS ORDERED: Vancomycin HCl 1.25 GM in Sodium Chloride 0.9% 250 ML 250 ML IVPB ONE (17:15)
[2020-08-17 17:44] LABS: Hemoglobin 10.7 g/dL (12.0-16.0); Mean Corpuscular HGB CONC 32.5 g/dL (32.0-36.0); Mean Corpuscular Hemoglobin 30.1 pg (27.0-31.0); Mean Corpuscular Volume 92.8 fL (78.0-98.0); Mean Platelet Volume 8.1 fL (7.4-10.4); Platelet Count 479 thou/uL (130-400); Red Blood Cell (RBC) Count 3.56 mill/uL (4.20-5.40); White Blood Cell (WBC) Count 25.6 thou/uL (4.8-10.8)
[2020-08-17 18:01] LABS: Band 21 % (5-11); Lymphocytes 9 % (21-51); MDiff Complete? YES; Monocytes 10 % (0-10); Neutrophil 60 % (42-75); Platelet Morphology Comment Appears Increased; Polychromasia SLIGHT = 2-3 cells (100X) (0-2/hpf); Target Cells SLIGHT = 2-5 cells (100X) (0-1/hpf); Tear Drops SLIGHT = 2-5 cells (100X) (0-1/hpf)
[2020-08-17 18:02] LABS: INR-International Normal Ratio 1.4; Prothrombin Time 17.3 sec (12.0-14.7)
[2020-08-17 18:03] LABS: PTT 41.8 sec (22.9-36.1)
[2020-08-17 19:16] LABS: Albumin 2.7 g/dL (3.4-4.8)
[2020-08-17 19:17] LABS: Chloride 103 mmol/L (98-107); Potassium 3.3 mmol/L (3.5-5.1); Sodium 136 mmol/L (136-145)
[2020-08-17 19:18] LABS: Calcium 8.3 mg/dL (7.8-10.44)
[2020-08-17 19:19] LABS: Globulin 4.9 g/dL (2.4-3.5); Glucose 96 mg/dL (80-115); Protein, Total 7.6 g/dL (6.0-8.3)
[2020-08-17 19:20] LABS: Anion Gap 17 mmol/L (10-20); Bilirubin, Total 0.5 mg/dL (0.2-1.2); Carbon Dioxide 19 mmol/L (23-31)
[2020-08-17 19:21] LABS: Alkaline Phosphatase 102 U/L (40-110)
[2020-08-17 19:22] LABS: Calc. Creatinine Clearance 0 mL/min (70-130)
[2020-08-17 19:23] LABS: BUN (Urea Nitrogen) 14 mg/dL (9.8-20.1)
[2020-08-17 19:24] LABS: ALT (SGPT) Less than 7 U/L (8-55); AST (SGOT) 11 U/L (5-34)
[2020-08-17 19:25] LABS: Lipase 34 U/L (8-78)
[2020-08-18 00:35] VITALS: BMI 24.7
[2020-08-18] MEDS: metroNIDAZOLE 500 MG in Premix Bag 1 BAG IVPB SCH ×3 (01:11→16:16)
[2020-08-18] MEDS: Sodium Chloride 0.9% 1,000 ML IV SCH ×3 (01:12→23:19)
[2020-08-18] MEDS: Cefepime 2 GM in Sodium Chloride 0.9% 100 ML IVPB SCH ×3 (02:22→16:14)
--- NOTE | 2020-08-18 03:42 | CON ---
DATE OF CONSULTATION: 08/17/2020 CONSULTING: Emergency room. CONSULTED: Dr. Herron. REASON FOR CONSULTATION: Retroperitoneal abscess. HISTORY OF PRESENT ILLNESS: Mrs. Alves is a 64-year-old black female who is the patient of Dr. Vyas. Dr. Vyas is currently out of the office right now and I am covering for him. The patient underwent a left nephrectomy for chronic pyelonephritis and infected nonfunctional kidney on July 20, 2020. Postoperatively, she had recovered and had her MAREK removed while in the hospital and was sent home. She was doing relatively well at her postop visit with Dr. Vyas. During her followup with Dr. Vyas, she did have a knot on her left flank which burst and drained pus. Dr. Vyas had this packed and subsequently this closed and healed up. Approximately 3-4 days ago, the patient started noticing that she was having really bad left flank pain. She stated that she had significant malaise and felt really bad. She began having shortness of breath as well as pleuritic chest pain with deep inspiration. She became fatigued, weak, and nauseated with epigastric left flank, left chest, and back pain. She denied any fevers, diarrhea, palpitations, or substernal pressure. She did not have any dizziness. Her vision was normal. She denied any lower extremity edema. She called the office at which time, they notified me of these symptoms. I recommended that she get a CT scan with CBC. Her white blood cell count was elevated to 26,000, and her CT was completed, which demonstrated a large loculated left retroperitoneal fluid collection consistent with early phlegmon. Additionally, she had a large left pleural effusion. Given these findings, I recommended she proceed to the emergency room for admission and treatment. Upon arrival to the ER, on my discussion with the patient, she states she continues to feel really bad. She continues to have the aforementioned symptoms including the left-sided chest pain, shortness of breath, with pleuritic pain on inspiration, left flank, abdominal, epigastric, and back pain. She continues to be nauseated. She states she has hardly ate anything. Nothing so far has made her feel any better. Her pain is currently an 8/10. ALLERGIES: NONE. HOME MEDICATIONS: Busy 5/325 mg one tab p.o. q.4 hours p.r.n. pain and a blood pressure medication, patient states that she does not know what that is. PAST MEDICAL HISTORY: Significant for hypertension, nephrolithiasis, renal cell carcinoma in the infected kidney which was removed. PAST SURGICAL HISTORY: 1. Nephrostomy tube placement. 2. Shoulder surgery. 3. Right knee replacement. 4. Hysterectomy. 5. Appendectomy. 6. Left nephrectomy with splenectomy. SOCIAL HISTORY: The patient denies alcohol abuse, illicit drug use, or tobacco abuse. FAMILY HISTORY: Noncontributory. REVIEW OF SYSTEMS: A 12-point review of systems included in the HPI. Remainder of 12-point review of systems reviewed with the patient and negative other than what was commented on the HPI. PHYSICAL EXAMINATION: VITALS: Temperature 98.1, pulse 96, respirations 16, blood pressure 109/62, saturations 98% on room air. GENERAL: Appears ill. Answering questions appropriately. Well nourished, well developed. HEENT: Normocephalic, atraumatic. Pupils are symmetric and round. Sclerae nonicteric. Trachea midline. Moist mucous membranes. CARDIOVASCULAR: Regular rate and rhythm. Normal S1, S2. Symmetric pulses. CHEST: Symmetric expansion of lungs. Nonlabored breathing currently. Diminished breath sounds on the left side more so than on the right with crackles more so on the left. There is significant left-sided chest wall tenderness. ABDOMEN: Incision is healing very well without evidence of infection, hernia, or dehiscence. Significant tenderness to palpation on the left flank and left upper quadrant with guarding, nondistended, soft. Nephrostomy site is well healed. The MAREK site is also well healed. : Exam is deferred at this time. EXTREMITIES: No clubbing, cyanosis, or edema. MUSCULOSKELETAL: No joint deformities or joint erythema noted. Full range of motion. SKIN: Warm, dry. No rash or lesions. No open wounds. Good turgor. LYMPH: No obvious lymphadenopathy in the inguinal, axillary, or supraclavicular region. NEUROLOGIC: Cranial nerves 2 through 12 grossly intact. No focal or sensory motor deficits identified. PSYCHIATRIC: Alert and oriented x3. Appropriate mood and affect. LABORATORY EVALUATION: Full set of labs are in the [employer] system which I have reviewed. Of note, the patient's white blood cell count is 25,000 with 479 platelets. Creatinine is 0.97. Amylase and lipase are normal. Troponins are also normal. Lactate is normal at 1.6. CT done August 17 earlier today demonstrates interval nephrectomy with inflammatory changes in the surgical bed with multilocular fluid collection that could potentially represent an abscess. Reactive left pleural effusion. Nonspecific enlarged retroperitoneal lymph nodes. ASSESSMENT AND PLAN: A 64-year-old black female with likely retroperitoneal phlegmon potentially turning into an abscess with significant pleuritic chest pain concerning for a possible empyema. I would recommend a thoracentesis to drain her left fluid collection since she is complaining of significant pain, discomfort, as well as pleuritic chest pains. As far as the retroperitoneal abscess, I would recommend broad-spectrum antibiotics. The ER has already initiated cefepime, Flagyl, and vancomycin, which I think is appropriate coverage. I reviewed the CT images myself and there does not appear to be any evidence of bowel leak. I have spoken with Dr. Peters in Radiology. He concurs with the findings within the CT scan. I asked him about the possibility of placing a percutaneous drain into the fluid collection, but I am concerned about the loculations and whether or not these could sufficiently be drained. He feels it would be difficult to place a percutaneous drain at this time secondary to the loculations without going transpleural, which I felt was not the best course of action. Alternatively, if the patient is improving clinically with antibiotics, repeat CT scan can be done in 24-48 hours and see if the phlegmon is consolidating into a single abscess. If this occurs, it would be amenable to percutaneous drainage. However, if the patient is decompensating or declining with worsening pain, increasing white count, fevers, hemodynamic instability or failure to improve without significant consolidation of her phlegmon, I have told the patient she will likely return to the operating room for exploration and retroperitoneal washout. Given the location of the infection, it is possible that colonic injury could occur during this procedure. As such we have elected initially to proceed with conservative measures at this time given that she is currently appearing stable other than having a lot of pain although my threshold for doing an open retroperitoneal washout would be low at this time. I have asked because she has a pleural effusion and has a relatively complicated infection that she be admitted to the hospitalist service for 24-hour monitoring. We will handle the surgical aspects. I would recommend that she be scheduled for thoracentesis tomorrow. We will keep a close eye on her retroperitoneal abscess with a low index of suspicion for proceeding with retroperitoneal washout if necessary. I will continue to cover for the patient for now. Dr. Bobby Hsu will be covering for this weekend and Dr. Jose Vyas will return to care for this patient starting on Friday. Job ID: [id number]
--- NOTE | 2020-08-18 03:48 | HP ---
REASON FOR ADMISSION: Abdominal pain. HISTORY OF PRESENT ILLNESS: This is a 64-year-old female patient, who is status post left nephrectomy. She was diagnosed with renal cell carcinoma and renal abscess, underwent open left nephrectomy for chronic pyelonephritis and renal abscess. 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 She was hospitalized between July 20 and July 26. During her stay, her white count was initially elevated, but slowly resolved. It was thought that this was due to her splenectomy. She received post splenectomy vaccination. She was discharged home and since her discharge, she has been having pain around the incisional site, but also at some point at the site of the exit wound of her drain, she developed a bump that bursts and a bloody liquid drained, then pus. She followed up with Dr. Vyas, who packed the wound area. This occurred approximately a week ago. He instructed her to remove the packing if the packing does not fall off by itself, which it did, but the patient has been complaining of left flank pain described as stabbing like in nature, worse with movements and with taking a deep breath. Also shortness of breath, especially on ambulation. Also decreased appetite. She does report night sweats, but no fevers and no chills. She does report pain radiating to her left parasternal area underneath her left breast. The pain is reproducible with palpation, she does describe inability to walk short distances due to her pain. Also, she does describe decreased ability to sleep due to the pain. She has to sit up all the time. She cannot lie flat on her back. All those symptoms were reported to her surgeon. She was advised to undergo a CT of the abdomen, which she did. She was then called and asked to present to our emergency room because of abnormal findings on her CT. The patient is currently in the ER, appears to be comfortable. Does report some pain with movements. Her blood pressure is on the low side. She does report taking her blood pressure medications today. Also, her aspirin. PAST MEDICAL HISTORY: 1. Left percutaneous nephrolithotomy in 2014. 2. Depression. 3. Arthritis of the knee. 4. Status post right knee replacement. 5. High blood pressure. 6. High cholesterol. 7. Chronic kidney disease. 8. Chronic low back pain. 9. Nephrolithiasis. 10. Nephrostomy tube placement. 11. Neuropathy. SOCIAL HISTORY: She does not smoke. Does not drink alcohol. FAMILY HISTORY: Negative for premature coronary artery disease. ALLERGIES: NO NOTE OF ANY DRUG ALLERGY. REVIEW OF SYSTEMS: All systems reviewed except the above mentioned found to be negative. PHYSICAL EXAMINATION: GENERAL: Awake, alert, oriented, does not appear in distress. VITAL SIGNS: Her blood pressure is 101/61, heart rate of 84, temperature is 98 degrees, saturating 96% on 2 L nasal cannula. HEENT: Head is nontraumatic, normocephalic. Pupils equal, reactive. Extraocular movements are intact. Nonicteric sclerae. Well-injected conjunctivae. Oral mucosa normal. Nasal mucosa normal. NECK: Supple. No adenopathy. No murmur. Thyroid is palpable. Trachea is midline. No supraclavicular adenopathy S1, S2 regular. No murmurs. No gallops. No friction rubs. No displacement of PMI. LUNGS: Decreased air entry over the left lung area. Bowel sounds positive. Tenderness on palpation of the left upper quadrant area. ABDOMEN: Soft. No lower extremity edema. No cyanosis. NEUROLOGIC: Cranial nerves 2 through 12 within normal limits. Normal motor function. Normal sensory function and reflexes. LABORATORY DATA: Blood work shows WBC of 25.6, hemoglobin of 10.7, platelets of 479, bands of 21. INR 1.4, PTT 41.8, PT 17.3. Sodium 136, potassium 3.3, bicarb of 19, creatinine 0.97. A CT of the abdomen and pelvis shows interval nephrectomy with inflammatory change in the surgical bed. There is multiloculated fluid collection in the surgical bed as above that could potentially represent an abscess in the surgical bed. Correlate with white blood count and fever. Reactive small left pleural effusion. Nonspecific enlarged retroperitoneal lymph nodes. ASSESSMENT AND PLAN: This is a 64-year-old female patient, who is status post left nephrectomy, presenting with recent drainage from her drainage tube sites, also left sided chest pain and flank pain and shortness of breath. She cannot take a full breath most likely due to irritation due to the intraabdominal process that is described in the CAT scan of the abdomen. Also does have small amount of pleural effusion, we did contact Dr. Herron of Urology. Recommendation is to consult IR to drain the pleural effusion and continue with IV antibiotics. In regard of the intraabdominal process, Urology will consult in a.m. for further recommendations. Cardiac: The patient does have history of high blood pressure. Her blood pressure is soft. Could be due to her sepsis. We will hold her blood pressure medication, she does take aspirin. We will hold that too to minimize perioperative bleeding. Infectious Disease: The patient does have intraabdominal process that could be an abscess. She did receive cefepime, vancomycin, and Flagyl. Continue with these three medications until Urology see her and give us further recommendation on how to proceed in the setting of her recent surgery. Pulmonary: The patient does have small left pleural effusion. We will ask Interventional Radiology to perform ultrasound-guided thoracocentesis to further study and investigate the nature of the fluid. For deep vein thrombosis prophylaxis, she will be on SCDs. We will hold off on using Lovenox now in case she will need any further procedures. For pain, she will be on IV morphine on an as-needed basis. I did discuss the plan of care with her. She is in agreement. Job ID: [id number]
[2020-08-18] MEDS: Vancomycin 1 GM in Premix Bag 1 BAG IVPB SCH ×2 (05:28→18:16)
[2020-08-18 05:45] LABS: SARS-CoV-2 MS2 Positive; SARS-CoV-2 N Gene Negative; SARS-CoV-2 S Gene Negative; SARS-CoV-2 by NAA Not Detected (NotDetected); SARS-CoV-2 orf1ab Negative
[2020-08-18 06:15] LABS: #Eosinphils 0.1 thou/uL (0.0-0.7); #Lymphocytes 1.8 thou/uL (1.20-3.40); #Monocytes 1.6 thou/uL (0.11-0.59); #Neutrophils 21.1 thou/uL (1.40-6.50); %Eosinophils 0.5 % (0.0-10.0); %Lymphocytes 7.1 % (21.0-51.0); %Monocytes 6.4 % (0.0-10.0); %Neutrophils 85.9 % (42.0-75.0); Hemoglobin 9.4 g/dL (12.0-16.0); Mean Corpuscular HGB CONC 31.4 g/dL (32.0-36.0); Mean Corpuscular Hemoglobin 29.8 pg (27.0-31.0); Mean Corpuscular Volume 94.9 fL (78.0-98.0); Mean Platelet Volume 7.4 fL (7.4-10.4); Platelet Count 428 thou/uL (130-400); RBC Distribution Width 14.7 % (11.5-14.5); Red Blood Cell (RBC) Count 3.17 mill/uL (4.20-5.40); White Blood Cell (WBC) Count 24.5 thou/uL (4.8-10.8)
[2020-08-18 06:21] LABS: Hemoglobin A1c 5.1 % (4.0-6.0)
[2020-08-18 06:33] LABS: Anion Gap 16 mmol/L (10-20); BUN (Urea Nitrogen) 11 mg/dL (9.8-20.1); Calc. Creatinine Clearance 73 mL/min (70-130); Calcium 8.7 mg/dL (7.8-10.44); Carbon Dioxide 20 mmol/L (23-31); Chloride 104 mmol/L (98-107); Glucose 111 mg/dL (80-115); Potassium 3.7 mmol/L (3.5-5.1); Sodium 136 mmol/L (136-145)
[2020-08-18] MEDS ORDERED: Vancomycin HCl 1.25 GM in Sodium Chloride 0.9% 250 ML 300 ML IVPB SCH (07:00)
[2020-08-18] MEDS: Bisoprolol Fumarate 5 MG TAB PO SCH (09:30)
[2020-08-18] MEDS ORDERED: Sodium Bicarbonate 2.5 MEQ/5 ML VIAL ONE (09:42)
[2020-08-18] MEDS ORDERED: Lidocaine 1% PF 5 ML VIAL ONE (09:42)
--- NOTE | 2020-08-18 11:04 | ULT ---
US Thoracentesis History: Pleural effusion Comparison: CT exam prior day Findings: Patient is rotated ultrasound suite. All questions were answered. Informed consent obtained . Timeout performed. The patient's left chest was prepped and draped in normal sterile fashion. Using ultrasound guidance the left pleural space was accessed. 480 mL of red-tinged fluid was removed. Patient tolerated the procedure well without complication. Impression: Technically successful ultrasound-guided thoracentesis.
[2020-08-18 12:05] LABS: Fluid, Protein 6.1 g/dL (Not Available)
--- NOTE | 2020-08-18 13:43 | PDOC.HOSPP ---
- Subjective Encounter Date: 08/18/20 Encounter Time: 10:45 Subjective: has severe lower chest and left upper abdomen pain, worse on movement and coughing no chest pain or sob - Objective Vital Signs & Weight: Vital Signs (12 hours) Temp Pulse Resp BP Pulse Ox 08/18/20 13:18 98.0 F 80 18 97/66 95 08/18/20 08:00 98 08/18/20 07:21 97.9 F 74 18 96/60 98 08/18/20 05:23 97.8 F 83 18 94/58 L 94 L Weight Admit Weight 153 lb 3.2 oz Weight 153 lb 3 oz I&O: 08/17/20 08/18/20 08/19/20 06:59 06:59 06:59 Intake Total 1100 Balance 1100 Result Diagrams: 08/18/20 05:33 08/18/20 05:33 Hospitalist ROS - Medication Medications: Active Medications Generic Name Dose Route Start Last Admin Trade Name Freq PRN Reason Stop Dose Admin Bisoprolol Fumarate 5 mg 08/18/20 09:00 08/18/20 09:30 Bisoprolol Fumarate 5 Mg Tab PO Not Given DAILY YESSENIA Sodium Chloride 1,000 mls @ 100 mls/hr 08/17/20 21:45 08/18/20 01:12 Normal Saline 0.9% IV 1,000 mls .Q10H YESSENIA Administration Cefepime HCl 2 gm/ Sodium 100 mls @ 200 mls/hr 08/18/20 01:00 08/18/20 08:29 Chloride IVPB 100 mls 0100,0900,1700 YESSENIA Administration Metronidazole 500 mg/ Device 100 mls @ 100 mls/hr 08/18/20 01:00 08/18/20 11:30 IVPB 100 mls 0100,0900,1700 YESSENIA Administration Vancomycin HCl 1 gm/ Device 200 mls @ 200 mls/hr 08/18/20 06:00 08/18/20 05:28 IVPB 200 mls 0600,1800 YESSENIA Administration - Exam General Appearance: awake alert Eye: PERRL, anicteric sclera ENT: no oropharyngeal lesions, moist mucosa Neck: supple, no JVD Heart: RRR, no murmur Respiratory: no wheezes, no rales Gastrointestinal: soft, non-distended, normal bowel sounds, tender to palpation Gastrointestinal - other findings: LUQ tenderness Extremities: no cyanosis, no edema Neurological: cranial nerve grossly intact, no focal deficits Psychiatric: normal affect, A&O x 3 Hosp A/P (1) Perinephric abscess Code(s): N15.1 - RENAL AND PERINEPHRIC ABSCESS Status: Acute (2) Sepsis Code(s): A41.9 - SEPSIS, UNSPECIFIED ORGANISM Status: Acute Qualifiers: Sepsis type: sepsis due to unspecified organism Sepsis acute organ dysfunction status: without acute organ dysfunction Qualified Code(s): A41.9 - Sepsis, unspecified organism (3) Renal cell cancer Code(s): C64.9 - MALIGNANT NEOPLASM OF UNSP KIDNEY, EXCEPT RENAL PELVIS Status: Acute Qualifiers: Laterality: left Qualified Code(s): C64.2 - Malignant neoplasm of left kidney, except renal pelvis (4) Chronic anemia Code(s): D64.9 - ANEMIA, UNSPECIFIED Status: Chronic (5) Moderate protein malnutrition Code(s): E44.0 - MODERATE PROTEIN-CALORIE MALNUTRITION Status: Chronic - Plan has thoracentesis with removal of reactionary red col fluid with pH of 7.6 around 480ml, prelim gm stain is -ve as well has multiloculated fluid collection in the bed of recent left nephrectomy along with splenectomy (07/20/2020) nephrectomy was done for chronic pyelonephritis but histo path showed findings of renal cell ca is on vanc, cefepime and flagyl, iv fluids encourage po intake, ensure 1 can tid /Lilliam are following patient PT blanca
[2020-08-18] MEDS: Morphine 2 MG/ML VIAL SLOW IVP PRN (13:57)
--- NOTE | 2020-08-18 18:04 | PRG ---
DATE OF SERVICE: 08/18/2020 SUBJECTIVE: The patient states that she is feeling okay. She is still having pain, although it seems to be more control today. Her vitals have been stable and she is not afebrile. She has had some nausea. OBJECTIVE: VITAL SIGNS: Temperature 98.9, pulse 95, respirations 18, blood pressure 93/59, and saturation 92% on 2 L room air. GENERAL: No apparent distress, communicative and alert. CARDIOVASCULAR: Regular rate and rhythm. CHEST: Nonlabored breathing. Symmetric expansion on lungs. Diminished breath sounds on the left. ABDOMEN: Soft, significantly tender to palpation on the left as well as left flank. Still positive guarding. No rebound. EXTREMITIES: No edema. LABORATORY DATA: On laboratory evaluation, full set of labs are in the [facility], which I have reviewed. Of note, the patient's white count is 24,000, hemoglobin of 9.4. Creatinine is 0.88. ASSESSMENT AND PLAN: A 64-year-old black female with left pleural effusion, which is symptomatic as well as left retroperitoneal abscess, which is currently loculated, not well consolidated. Her thoracentesis showed primarily a transudative type fluid. This is probably reactive secondary to the infection, which is just below the diaphragm. Hopefully, she is symptomatically better after this. I have spoken with Radiology again in attempts to see if a percutaneous drain could be placed into the retroperitoneal infection, but they feel that it would need to cross the pleura, which would likely result in potential infection within the full pleural space. As such, we have elected to monitor and see if the infection will consolidate. Obviously, if the patient is deteriorating or not improving, she may need open exploration, but this would come at significant morbidity as there will likely be intense inflammation and potential bowel injury requiring a colostomy. As such, we will attempt to avoid this if possible. Dr. Hsu will be covering over the weekend and I will give sign out to him and be available for surgery if surgery is needed. Dr. Vyas will resume care on Friday. I will order a CT scan for tomorrow morning to see if there is any change in the retroperitoneal infection. Job ID: [id number]
[2020-08-18] MEDS: Ondansetron PF 4 MG/2 ML Vial IVP PRN (23:19)
[2020-08-19] MEDS: Cefepime 2 GM in Sodium Chloride 0.9% 100 ML IVPB SCH ×3 (00:39→16:23)
[2020-08-19] MEDS: metroNIDAZOLE 500 MG in Premix Bag 1 BAG IVPB SCH ×3 (01:27→17:16)
[2020-08-19 06:29] LABS: Vancomycin, Trough 17.6 ug/mL
[2020-08-19] MEDS: Vancomycin 1 GM in Premix Bag 1 BAG IVPB SCH ×2 (06:41→18:46)
[2020-08-19] MEDS: Sodium Chloride 0.9% 1,000 ML IV SCH ×2 (06:41→16:13)
[2020-08-19] MEDS: Ondansetron PF 4 MG/2 ML Vial IVP PRN ×2 (08:43→21:38)
[2020-08-19] MEDS: Bisoprolol Fumarate 5 MG TAB PO SCH (10:03)
--- NOTE | 2020-08-19 10:34 | PRG ---
DATE OF SERVICE: 08/19/2020 This is hospital day #2. She is afebrile. Vital signs have been stable. She has some nausea, has been made a bit worse, having to drink contrast for repeat CAT scan today which she has not yet had done. She did eat food yesterday and kept it down. She is passing gas. She is still having left-sided pain. It is probably about the same as it was yesterday, not any worse. White count is about the same as it was yesterday. Her creatinine is still normal. Her culture so far negative. We will see what her CAT scan shows. Job ID: [id number]
--- NOTE | 2020-08-19 11:43 | CT ---
CT OF ABDOMEN PERFORMED WITH INTRAVENOUS CONTRAST ENHANCEMENT: HISTORY: The patient is status post left nephrectomy. Left renal abscess. COMPARISON: 08/17/2020 exam. FINDINGS: Since that prior study, the patient has undergone a left-sided thoracentesis. There is reduction of the left-sided effusion. T here is atelectatic change in the left base. There is some air present wi thin the pleural space related to the thoracentesis. I do not have any recent chest x-ray which may be helpful in evaluation, although this is probably just some minimal air related to incomplete expan [place] of the atelectatic left lung. The liver is normal in appearance. The spleen and left kidney have been removed. The multiloculated fluid collection within the left upper quadrant of the abdomen which begins at a subdiaphragmatic lo cation and extends along the pancreatic tail into the left renal bed region is felt to be stable. Th e majority of this is more subdiaphragmatic in location. Given its multiloculated appearance, there is not felt to be a percutaneously drainable area of collection. There is no air density within it. The gallbladder region appears unremarkable. Right adrenal gland and right kidney are normal. IMPRESSION: 1. Reduction in left-sided pleural effusion. There is some air present within the left pleural spac e probably related to incomplete reexpansion of the left lower lobe. 2. Multiloculated fluid collection mainly in a subdiaphragmatic location is again demonstrated It i s felt to be essentially stable as compared to the prior examination. Post left nephrectomy and left splenectomy changes are seen. POS: HANNA
[2020-08-19] MEDS ORDERED: Iopamidol-370 76% 500 ML 1 ML ONE (12:08)
--- NOTE | 2020-08-19 12:31 | PDOC.HOSPP ---
- Subjective Encounter Date: 08/19/20 Encounter Time: 12:29 Subjective: Ms. Alves was seen today in follow-up of perinephric abscess. She notes continued nausea. She also notes 7/10 pain in the area as well. - Objective Vital Signs & Weight: Vital Signs (12 hours) Temp Pulse Resp BP Pulse Ox 08/19/20 07:32 99.0 F 85 16 107/70 95 08/19/20 04:00 98.8 F 82 20 106/67 95 Weight Admit Weight 153 lb 3.2 oz Weight 153 lb 3 oz I&O: 08/18/20 08/19/20 08/20/20 06:59 06:59 06:59 Intake Total 1100 2800 Balance 1100 2800 Result Diagrams: 08/18/20 05:33 08/18/20 05:33 Hospitalist ROS - Medication Medications: Active Medications Generic Name Dose Route Start Last Admin Trade Name Freq PRN Reason Stop Dose Admin Bisoprolol Fumarate 5 mg 08/18/20 09:00 08/19/20 10:03 Bisoprolol Fumarate 5 Mg Tab PO Not Given DAILY YESSENIA Sodium Chloride 1,000 mls @ 100 mls/hr 08/17/20 21:45 08/19/20 06:41 Normal Saline 0.9% IV 1,000 mls .Q10H YESSENIA Administration Cefepime HCl 2 gm/ Sodium 100 mls @ 200 mls/hr 08/18/20 01:00 08/19/20 08:45 Chloride IVPB 100 mls 0100,0900,1700 YESSENIA Administration Metronidazole 500 mg/ Device 100 mls @ 100 mls/hr 08/18/20 01:00 08/19/20 10:00 IVPB 100 mls 0100,0900,1700 YESSENIA Administration Vancomycin HCl 1 gm/ Device 200 mls @ 200 mls/hr 08/18/20 06:00 08/19/20 06:41 IVPB 200 mls 0600,1800 YESSENIA Administration Morphine Sulfate 2 mg 08/17/20 21:44 08/18/20 13:57 Morphine 2 Mg/Ml Vial SLOW IVP 2 mg Q4H PRN Administration Pain Ondansetron HCl 4 mg 08/18/20 17:44 08/19/20 08:43 Ondansetron Pf 4 Mg/2 Ml Vial IVP 4 mg Q6H PRN Administration Nausea/Vomiting - Exam Eye: PERRL, anicteric sclera Heart: RRR, no murmur, no gallops, no rubs, normal peripheral pulses Respiratory: CTAB (with the exception of decreased breath sounds at the left base) Gastrointestinal: soft, non-tender, non-distended, normal bowel sounds, no pal pable masses, no hepatomegaly Extremities: no cyanosis, no edema Hosp A/P (1) Perinephric abscess Code(s): N15.1 - RENAL AND PERINEPHRIC ABSCESS Status: Acute (2) Renal cell cancer Code(s): C64.9 - MALIGNANT NEOPLASM OF UNSP KIDNEY, EXCEPT RENAL PELVIS Status: Acute Qualifiers: Laterality: left Qualified Code(s): C64.2 - Malignant neoplasm of left kidney, except renal pelvis (3) Chronic anemia Code(s): D64.9 - ANEMIA, UNSPECIFIED Status: Chronic (4) Moderate protein malnutrition Code(s): E44.0 - MODERATE PROTEIN-CALORIE MALNUTRITION Status: Chronic - Plan * Perinephric Abscess- continue Cefepime, Flagyl and Vancomycin and Urology recommendations noted. Will hold off on invasive drainage of the abscess including IR drainage, due to it's proximity to the lungs. Will re-evaluate in a day or two * Symptom management *
--- NOTE | 2020-08-19 14:50 | EKG ---
Test Reason : Blood Pressure : / mmHG Vent. Rate : 087 BPM Atrial Rate : 087 BPM P-R Int : 102 ms QRS Dur : 126 ms QT Int : 422 ms P-R-T Axes : 014 -21 -21 degrees QTc Int : 507 ms Sinus rhythm with short FL Right bundle branch block Possible Lateral infarct , age undetermined Abnormal ECG T wave inversion III Confirmed by SAVITA DAIGLE M.D. ([id number]), supervising film or videotape editor AMINA ACEVEDO ([id number]) on 08/19/2020 2:50:38 PM Referred By: Confirmed By:SAVITA DAIGLE M.D.
[2020-08-19] MEDS: Morphine 2 MG/ML VIAL SLOW IVP PRN (17:19)
[2020-08-19] MEDS: Promethazine HCl 25 MG in Sodium Chloride 0.9% 50 ML IVPB PRN (17:43)
[2020-08-19] MEDS: HYDROcodone/Acetaminophen 10/325 mg Tablet PO PRN (21:36)
[2020-08-20] MEDS: Cefepime 2 GM in Sodium Chloride 0.9% 100 ML IVPB SCH ×3 (00:32→17:05)
[2020-08-20] MEDS: Sodium Chloride 0.9% 1,000 ML IV SCH ×3 (00:35→21:33)
[2020-08-20] MEDS: metroNIDAZOLE 500 MG in Premix Bag 1 BAG IVPB SCH ×3 (02:30→17:05)
[2020-08-20] MEDS: Vancomycin 1 GM in Premix Bag 1 BAG IVPB SCH ×2 (05:46→17:05)
[2020-08-20 06:12] LABS: #Eosinphils 0.2 thou/uL (0.0-0.7); #Lymphocytes 2.5 thou/uL (1.20-3.40); #Monocytes 1.8 thou/uL (0.11-0.59); #Neutrophils 15.8 thou/uL (1.40-6.50); %Basophils 0.1 % (0.0-1.0); %Eosinophils 0.9 % (0.0-10.0); %Lymphocytes 12.3 % (21.0-51.0); %Monocytes 8.7 % (0.0-10.0); %Neutrophils 77.9 % (42.0-75.0); Hemoglobin 8.6 g/dL (12.0-16.0); Mean Corpuscular HGB CONC 30.7 g/dL (32.0-36.0); Mean Corpuscular Volume 94.4 fL (78.0-98.0); Mean Platelet Volume 8.2 fL (7.4-10.4); Platelet Count 377 thou/uL (130-400); RBC Distribution Width 14.9 % (11.5-14.5); Red Blood Cell (RBC) Count 2.98 mill/uL (4.20-5.40); White Blood Cell (WBC) Count 20.3 thou/uL (4.8-10.8)
[2020-08-20 06:26] LABS: Anion Gap 12 mmol/L (10-20); BUN (Urea Nitrogen) 5 mg/dL (9.8-20.1); Calc. Creatinine Clearance 85 mL/min (70-130); Calcium 8.1 mg/dL (7.8-10.44); Carbon Dioxide 22 mmol/L (23-31); Chloride 109 mmol/L (98-107); Glucose 87 mg/dL (80-115); Sodium 140 mmol/L (136-145)
[2020-08-20 06:36] LABS: Potassium 2.9 mmol/L (3.5-5.1)
[2020-08-20] MEDS ORDERED: Electrolyte Replacement Protocol FS PRN (07:00)
[2020-08-20] MEDS: HYDROcodone/Acetaminophen 10/325 mg Tablet PO PRN ×2 (07:04→15:13)
[2020-08-20] MEDS: Bisoprolol Fumarate 5 MG TAB PO SCH (08:31)
[2020-08-20] MEDS: Potassium Chloride 40 MEQ in Sodium Chloride 0.9% 250 ML 250 ML IVPB SCH (08:32)
[2020-08-20] MEDS ORDERED: Magnesium 2 GM/50 ML 2 GM in Premix Bag 1 BAG IVPB SCH (08:45)
--- NOTE | 2020-08-20 12:49 | PDOC.HOSPP ---
- Subjective Encounter Date: 08/20/20 Encounter Time: 12:47 Subjective: Ms. Alves was seen today in follow-up of perinephric abscess. She is feeling a little better today.She has better control of her nausea and pain. - Objective Vital Signs & Weight: Vital Signs (12 hours) Temp Pulse Resp BP Pulse Ox 08/20/20 12:27 98.0 F 78 16 110/70 93 L 08/20/20 07:40 98.0 F 76 16 101/62 93 L 08/20/20 04:35 98.0 F 77 16 107/67 93 L Weight Admit Weight 153 lb 3.2 oz Weight 153 lb 3 oz I&O: 08/19/20 08/20/20 08/21/20 06:59 06:59 06:59 Intake Total 2800 Balance 2800 Result Diagrams: 08/20/20 05:29 08/20/20 05:29 Hospitalist ROS - Medication Medications: Active Medications Generic Name Dose Route Start Last Admin Trade Name Freq PRN Reason Stop Dose Admin Hydrocodone Bitart/Acetaminophen 1 tab 08/19/20 12:33 08/20/20 07:04 Hydrocodone/Acetaminophen 10/325 Mg Tablet PO 1 tab Q4H PRN Administration Moderate to Severe Pain (6-10) Bisoprolol Fumarate 5 mg 08/18/20 09:00 08/20/20 08:31 Bisoprolol Fumarate 5 Mg Tab PO Not Given DAILY YESSENIA Sodium Chloride 1,000 mls @ 100 mls/hr 08/17/20 21:45 08/20/20 08:35 Normal Saline 0.9% IV 1,000 mls .Q10H YESSENIA Administration Cefepime HCl 2 gm/ Sodium 100 mls @ 200 mls/hr 08/18/20 01:00 08/20/20 08:32 Chloride IVPB 100 mls 0100,0900,1700 YESSENIA Administration Metronidazole 500 mg/ Device 100 mls @ 100 mls/hr 08/18/20 01:00 08/20/20 08:32 IVPB 100 mls 0100,0900,1700 YESSENIA Administration Vancomycin HCl 1 gm/ Device 200 mls @ 200 mls/hr 08/18/20 06:00 08/20/20 05:46 IVPB 200 mls 0600,1800 YESSENIA Administration Promethazine HCl 25 mg/ Sodium 51 mls @ 204 mls/hr 08/19/20 12:33 08/19/20 17:43 Chloride IVPB 51 mls Q6H PRN Administration Nausea/Vomiting Potassium Chloride 40 meq/ 270 mls @ 67.5 mls/hr 08/20/20 07:15 08/20/20 08:32 Sodium Chloride IVPB 08/21/20 11:14 270 mls NOW YESSENIA Administration Morphine Sulfate 2 mg 08/17/20 21:44 08/19/20 17:19 Morphine 2 Mg/Ml Vial SLOW IVP 2 mg Q4H PRN Administration Pain Ondansetron HCl 4 mg 08/18/20 17:44 08/19/20 21:38 Ondansetron Pf 4 Mg/2 Ml Vial IVP 4 mg Q6H PRN Administration Nausea/Vomiting - Exam Eye: PERRL, anicteric sclera Heart: RRR, no murmur Respiratory: CTAB (with decreased breath sounds at the left base) Gastrointestinal: soft, non-tender, non-distended, normal bowel sounds, no palpable masses Extremities: no cyanosis, no edema Hosp A/P (1) Perinephric abscess Code(s): N15.1 - RENAL AND PERINEPHRIC ABSCESS Status: Acute (2) Renal cell cancer Code(s): C64.9 - MALIGNANT NEOPLASM OF UNSP KIDNEY, EXCEPT RENAL PELVIS Status: Acute Qualifiers: Laterality: left Qualified Code(s): C64.2 - Malignant neoplasm of left kidney, except renal pelvis (3) Chronic anemia Code(s): D64.9 - ANEMIA, UNSPECIFIED Status: Chronic (4) Moderate protein malnutrition Code(s): E44.0 - MODERATE PROTEIN-CALORIE MALNUTRITION Status: Chronic (5) Hypokalemia Code(s): E87.6 - HYPOKALEMIA Status: Acute - Plan * Perinephric Abscess- continue Cefepime, Flagyl and Vancomycin * Symptoms are better managed * Will add dietary supplements for poor oral intake * Hypokalemia- replace and re-check
--- NOTE | 2020-08-20 13:19 | PRG ---
DATE OF SERVICE: 08/20/2020 The patient is afebrile with stable vital signs. Her creatinine is normal. Her white count is gone down to 20,000. She is a little anemic, may be related to hydration. Her hemoglobin is 8.6. She is actually feeling a bit better today. Her pain is less. She is drinking fluids adequately. She has a very poor p.o. intake of solids, just does not feel like eating. Her CT yesterday showed that the left-sided pleural effusion was much improved after the thoracentesis. There was really no significant change to the left-sided renal fossa abscess. Nothing that appeared to need to be drained in terms of being liquified. Still in a difficult position. Where she is improving, it does not appear she will need anything done emergently over the weekend and Dr. Vyas would resume her care tomorrow and this was discussed with her. Job ID: [id number]
[2020-08-20] MEDS: Ondansetron PF 4 MG/2 ML Vial IVP PRN (15:13)
[2020-08-20 15:35] LABS: Potassium 4.1 mmol/L (3.5-5.1)
[2020-08-20 17:16] LABS: Vancomycin, Trough 23.6 ug/mL
[2020-08-21] MEDS: Cefepime 2 GM in Sodium Chloride 0.9% 100 ML IVPB SCH ×4 (00:02→20:20)
[2020-08-21] MEDS: Sodium Chloride 0.9% 1,000 ML IV SCH ×3 (00:06→20:24)
[2020-08-21] MEDS: metroNIDAZOLE 500 MG in Premix Bag 1 BAG IVPB SCH ×4 (01:58→20:22)
[2020-08-21] MEDS: Ondansetron PF 4 MG/2 ML Vial IVP PRN (03:47)
[2020-08-21] MEDS: Vancomycin HCl 750 MG in Sodium Chloride 0.9% 250 ML 250 ML IVPB SCH ×2 (04:59→17:55)
[2020-08-21] MEDS: Potassium Chloride 40 MEQ in Sodium Chloride 0.9% 250 ML 250 ML IVPB SCH (06:11)
[2020-08-21] MEDS ORDERED: Iopamidol-370 76% 500 ML 1 ML ONE (09:15)
[2020-08-21] MEDS: Bisoprolol Fumarate 5 MG TAB PO SCH (09:52)
--- NOTE | 2020-08-21 10:47 | CT ---
EXAM: CT Abdomen W Con PROVIDED CLINICAL HISTORY: Abscess COMPARISON: 08/19/2020 FINDINGS: There is persistent left pleural fluid and adjacent consolidation. This appears similar to prior. Multiloculated rim-enhancing fluid collections within the left subdiaphragmatic, left perigastric and left renal fossa regions are redemonstrated, without detrimental interval change. Several of the larger loculations/collections appear slightly smaller as compared to prior. The spleen and left kidn ey are surgically absent. There is mural thickening involving the lateral aspect of the gastric fundus, and a well-defined fat plane between the perigastric rim-enhancing fluid collection and stomach is not evident. The adjacent pancreas normally enhances. The left adrenal gland is poorly visualized. The cranial aspects of the left psoas muscle are not separable from the left renal fossa component of the fluid collection. The liver, right kidney and adrenal gland appear unremarkable. There is no evidence for bowel obstruc tion. Conspicuous by number but not enlarged lymph nodes are seen within the retroperitoneum, retrocrural regions. The regional major vascular structures demonstrate no significant abnormality. N o evidence for pneumoperitoneum. The osseous structures demonstrate no concerning lytic or blastic lesions. IMPRESSION: Multiloculated fluid collection in the left upper abdomen, stable to slightly smaller than on prior.
--- NOTE | 2020-08-21 13:00 | PRG ---
DATE OF SERVICE: 08/21/2020 SUBJECTIVE: No acute events overnight. She is having left-sided flank discomfort and nausea. She denies fevers, dysuria, difficulty breathing, productive cough. OBJECTIVE: VITAL SIGNS: Afebrile. Vitals stable. Urine output is not being recorded. GENERAL: No acute distress. LUNGS: Unlabored breathing. HEART: Regular rate and rhythm. ABDOMEN: Soft, tender over the left side, nondistended. No further drainage from her historical left nephrostomy site. Incision well-approximated. SKIN: Warm and dry. No peripheral edema. Alert and oriented x3. PSYCHIATRIC: Normal mood and affect. LABORATORY DATA: Pending. Blood cultures negative. Pleural effusion culture negative. CT scan, I personally reviewed her CT scan, which I repeated today. This shows a loculated fluid collection in the left renal and splenic fossa abutting the diaphragm. ASSESSMENT AND PLAN: Left renal fossa abscess after nephrectomy on July 21. The patient and I have discussed her options at this point, noting that several different radiologists have refused to perform percutaneous drainage as they are concerned about injury to her diaphragm. The patient and I have decided together to proceed to the operating room tomorrow for open drainage of abscess. She understands that there are significant risks involved, especially considering that her colon is likely to be densely adherent to the abscess. She very well may require colostomy, which she understands. I have discussed this in advance with General Surgery to have them on standby. She also understands that there is a risk of recurrence of abscess, injury to small bowel or pancreas or stomach, need for further procedures, wound dehiscence, wound infection, incisional hernia. She expressed understanding of the risks and wishes to proceed. Job ID: [id number]
--- NOTE | 2020-08-21 15:08 | PDOC.HOSPP ---
- Subjective Encounter Date: 08/21/20 Encounter Time: 15:06 Subjective: Ms. Alves was seen today in follow-up of perinephric abscess. She notes improved pain, but continues nausea. - Objective Vital Signs & Weight: Vital Signs (12 hours) Temp Pulse Resp BP BP Pulse Ox 08/21/20 09:18 98.5 F 46 L 14 115/72 94 L 08/21/20 08:24 50 L 113/74 08/21/20 08:20 94 L 08/21/20 04:00 98.6 F 80 18 121/74 92 L Weight Admit Weight 153 lb 3.2 oz Weight 153 lb 3 oz I&O: 08/20/20 08/21/20 08/22/20 06:59 06:59 06:59 Intake Total 2200 Output Total 100 Balance 2100 Result Diagrams: 08/20/20 05:29 08/20/20 15:13 Hospitalist ROS - Medication Medications: Active Medications Generic Name Dose Route Start Last Admin Trade Name Freq PRN Reason Stop Dose Admin Hydrocodone Bitart/Acetaminophen 1 tab 08/19/20 12:33 08/20/20 15:13 Hydrocodone/Acetaminophen 10/325 Mg Tablet PO 1 tab Q4H PRN Administration Moderate to Severe Pain (6-10) Bisoprolol Fumarate 5 mg 08/18/20 09:00 08/21/20 09:52 Bisoprolol Fumarate 5 Mg Tab PO Not Given DAILY YESSENIA Sodium Chloride 1,000 mls @ 100 mls/hr 08/17/20 21:45 08/21/20 11:04 Normal Saline 0.9% IV Not Given .Q10H YESSENIA Promethazine HCl 25 mg/ Sodium 51 mls @ 204 mls/hr 08/19/20 12:33 08/19/20 17:43 Chloride IVPB 51 mls Q6H PRN Administration Nausea/Vomiting Vancomycin HCl 750 mg/ Sodium 250 mls @ 250 mls/hr 08/21/20 06:00 08/21/20 04:59 Chloride IVPB 250 mls 0600,1800 YESSENIA Administration Cefepime HCl 2 gm/ Sodium 100 mls @ 200 mls/hr 08/21/20 11:00 08/21/20 11:06 Chloride IVPB 100 mls 0300,1100,1900 YESSENIA Administration Metronidazole 500 mg/ Device 100 mls @ 100 mls/hr 08/21/20 12:00 08/21/20 12:25 IVPB 100 mls 0400,1200,2000 YESSENIA Administration Morphine Sulfate 2 mg 08/17/20 21:44 08/19/20 17:19 Morphine 2 Mg/Ml Vial SLOW IVP 2 mg Q4H PRN Administration Pain Ondansetron HCl 4 mg 08/18/20 17:44 08/21/20 03:47 Ondansetron Pf 4 Mg/2 Ml Vial IVP 4 mg Q6H PRN Administration Nausea/Vomiting - Exam Eye: PERRL, anicteric sclera Heart: RRR, no murmur, no gallops, no rubs, normal peripheral pulses Respiratory: CTAB, no wheezes, no rales, no ronchi, normal chest expansion Gastrointestinal: soft (+ left flank tenderness), non-distended, normal bowel sounds, no palpable masses Extremities: no cyanosis, no edema Hosp A/P (1) Perinephric abscess Code(s): N15.1 - RENAL AND PERINEPHRIC ABSCESS Status: Acute (2) Renal cell cancer Code(s): C64.9 - MALIGNANT NEOPLASM OF UNSP KIDNEY, EXCEPT RENAL PELVIS Status: Acute Qualifiers: Laterality: left Qualified Code(s): C64.2 - Malignant neoplasm of left kidney, except renal pelvis (3) Chronic anemia Code(s): D64.9 - ANEMIA, UNSPECIFIED Status: Chronic (4) Moderate protein malnutrition Code(s): E44.0 - MODERATE PROTEIN-CALORIE MALNUTRITION Status: Chronic (5) Hypokalemia Code(s): E87.6 - HYPOKALEMIA Status: Acute - Plan * Perinephric Abscess- continue Cefepime, Flagyl and Vancomycin * Symptoms - she continues to have some nausea- will add Compazine as an option * Will add dietary supplements for poor oral intake * Hypokalemia-resolved * Urology assessment notes. She will likely undergo open drainage of the abscess
[2020-08-21] MEDS ORDERED: Prochlorperazine Edisylate 10 MG in Sodium Chloride 0.9% 50 ML IVPB PRN (15:09)
[2020-08-21] MEDS: HYDROcodone/Acetaminophen 10/325 mg Tablet PO PRN (17:54)
[2020-08-22] MEDS: metroNIDAZOLE 500 MG in Premix Bag 1 BAG IVPB SCH ×3 (03:54→21:34)
[2020-08-22] MEDS: Cefepime 2 GM in Sodium Chloride 0.9% 100 ML IVPB SCH ×3 (03:55→20:55)
[2020-08-22 06:09] LABS: #Eosinphils 0.2 thou/uL (0.0-0.7); #Lymphocytes 2.9 thou/uL (1.20-3.40); #Monocytes 1.5 thou/uL (0.11-0.59); #Neutrophils 13.4 thou/uL (1.40-6.50); %Basophils 0.2 % (0.0-1.0); %Monocytes 8.1 % (0.0-10.0); %Neutrophils 74.6 % (42.0-75.0); Hemoglobin 8.4 g/dL (12.0-16.0); Mean Corpuscular HGB CONC 31.6 g/dL (32.0-36.0); Mean Corpuscular Hemoglobin 29.4 pg (27.0-31.0); Mean Corpuscular Volume 92.8 fL (78.0-98.0); Mean Platelet Volume 6.8 fL (7.4-10.4); Platelet Count 484 thou/uL (130-400); RBC Distribution Width 15.4 % (11.5-14.5); Red Blood Cell (RBC) Count 2.85 mill/uL (4.20-5.40); White Blood Cell (WBC) Count 17.9 thou/uL (4.8-10.8)
[2020-08-22 06:29] LABS: Anion Gap 13 mmol/L (10-20); BUN (Urea Nitrogen) 4 mg/dL (9.8-20.1); Calc. Creatinine Clearance 90 mL/min (70-130); Calcium 7.8 mg/dL (7.8-10.44); Carbon Dioxide 22 mmol/L (23-31); Chloride 108 mmol/L (98-107); Glucose 80 mg/dL (80-115); Sodium 140 mmol/L (136-145)
[2020-08-22 06:37] LABS: Potassium 2.9 mmol/L (3.5-5.1)
[2020-08-22] MEDS ORDERED: Potassium Chloride 10 MEQ/100 ML PREMIX BAG IVPB SCH (07:00)
[2020-08-22] MEDS ORDERED: Potassium Chloride 20 MEQ TAB PO SCH ×2 (07:00→11:00)
[2020-08-22] MEDS: Bisoprolol Fumarate 5 MG TAB PO SCH (08:13)
[2020-08-22] MEDS: Sodium Chloride 0.9% 1,000 ML IV SCH (08:15)
[2020-08-22] MEDS: Vancomycin HCl 750 MG in Sodium Chloride 0.9% 250 ML 250 ML IVPB SCH ×3 (08:59→22:30)
[2020-08-22] MEDS ORDERED: Succinylcholine 200 MG/10 ml SYRINGE FS ONE (10:23)
[2020-08-22] MEDS ORDERED: Ondansetron PF 4 MG/2 ML Vial ONE (10:23)
[2020-08-22] MEDS ORDERED: PROPOFOL 200 MG/20 ML VIAL ONE (10:23)
[2020-08-22] MEDS ORDERED: Glycopyrrolate 0.2 MG/ML 5 ML SYRINGE ONE (10:23)
[2020-08-22] MEDS ORDERED: Rocuronium Bromide 10 MG/ML (10ML VIAL) ONE (10:23)
[2020-08-22] MEDS ORDERED: Fentanyl 100 MCG/2 ML VIAL ONE (11:49)
[2020-08-22] MEDS ORDERED: Midazolam HCl 2 mg/2 ml Vial ONE (11:49)
[2020-08-22] MEDS ORDERED: SUGAMMADEX SODIUM 200 MG/2 ML VIAL ONE (12:24)
[2020-08-22] MEDS ORDERED: Ondansetron HCl/PF 4 MG/2 ML Vial IVP PRN (12:55)
[2020-08-22] MEDS ORDERED: Promethazine HCl 25 MG/ML VIAL SLOW IVP PRN (12:55)
[2020-08-22] MEDS ORDERED: HYDROmorphone 2 MG/ML VIAL SLOW IVP PRN (12:55)
[2020-08-22] MEDS ORDERED: Promethazine HCl 25 MG/ML VIAL IM PRN ×2 (12:55→13:09)
[2020-08-22] MEDS ORDERED: diphenhydrAMINE 50 MG/ML VIAL IM PRN (13:09)
[2020-08-22] MEDS ORDERED: diphenhydrAMINE 25 MG CAP PO PRN (13:09)
[2020-08-22] MEDS ORDERED: Naloxone HCl 0.4 mg/ml Vial IV PRN (13:09)
[2020-08-22] MEDS ORDERED: Zolpidem Tartrate 5 MG TAB PO PRN (13:09)
[2020-08-22] MEDS ORDERED: Ondansetron PF 4 MG/2 ML Vial IVP PRN (13:09)
[2020-08-22] MEDS ORDERED: diphenhydrAMINE 50 MG/ML VIAL IVP PRN (13:09)
[2020-08-22] MEDS ORDERED: HYDROmorphone 0.5 MG/0.5 ML SYRINGE ONE ×3 (13:10→13:41)
[2020-08-22] MEDS ORDERED: Communication Order-Pharmacy FS SCH (13:15)
--- NOTE | 2020-08-22 13:20 | OP ---
DATE OF PROCEDURE: 08/22/2020 PREOPERATIVE DIAGNOSES: Left renal and splenic fossa abscess. POSTOPERATIVE DIAGNOSIS: Left renal and splenic fossa abscess. PROCEDURE PERFORMED: Exploratory laparotomy with drainage of intraabdominal abscess. ESTIMATED BLOOD LOSS: Minimal. SPECIMEN: None. ANESTHESIA: General. COMPLICATIONS: None. HAND BUFFER SURGEON: Dr. Ken Hodges. DESCRIPTION OF PROCEDURE: After informed consent, the patient was taken to the operating room, transferred to the table under her own power. Anesthesia was established. A time-out was performed ensuring the correct patient, site, and procedure. Preoperative antibiotics were administered. She was prepped and draped in the supine position. I opened the left side of her partial chevron incision, which was carried down to fascia with electrocautery. Fascia was carefully opened and the peritoneum entered. The colon and omentum were adherent to the incision site, however, were easily dissected free without injury. We were able to bluntly dissect up into the left upper quadrant and into the abscess cavity, which was probed with significant amount of purulent drainage resulting. This was then washed out with about 2 L of saline. A 19-Slovak drain was then placed through the previous drain site in the left lower quadrant with the tail of the drain into the abscess site. I then closed the fascia in a running fashion with #1 PDS suture. Skin was closed with karson after irrigating the subcutaneous tissues. The drain site and incision were dressed with gauze. All counts were correct at the end of the case. She was then awoken from anesthesia, transferred back to her hospital bed, and taken to PACU in stable condition, where she will return to the floor upon recovery. Job ID: [id number]
[2020-08-22] MEDS: Potassium Chloride 40 MEQ in Sodium Chloride 0.45% 1,000 ML IV SCH ×2 (15:48→23:35)
--- NOTE | 2020-08-22 17:00 | PDOC.HOSPP ---
- Subjective Encounter Date: 08/22/20 Encounter Time: 16:58 Subjective: Ms. Alves was seen today in follow-up of perinephric abscess. She is post-op. She says she feels much better. the nasuea has resolved. Her pain is controlled with the PAN GREASER pump. - Objective Vital Signs & Weight: Vital Signs (12 hours) Temp Pulse Resp BP BP Pulse Ox 08/22/20 14:20 97.5 F L 69 18 113/67 95 08/22/20 08:00 94 L 08/22/20 07:45 97.9 F 65 18 117/74 94 L Weight Admit Weight 153 lb 3.2 oz Weight 153 lb 3 oz I&O: 08/21/20 08/22/20 08/23/20 06:59 06:59 06:59 Intake Total 2200 Output Total 100 Balance 2100 Result Diagrams: 08/22/20 05:37 08/22/20 05:37 Hospitalist ROS - Medication Medications: Active Medications Generic Name Dose Route Start Last Admin Trade Name Freq PRN Reason Stop Dose Admin Bisoprolol Fumarate 5 mg 08/18/20 09:00 08/22/20 08:13 Bisoprolol Fumarate 5 Mg Tab PO 5 mg DAILY YESSENIA Administration Promethazine HCl 25 mg/ Sodium 51 mls @ 204 mls/hr 08/19/20 12:33 08/19/20 17:43 Chloride IVPB 51 mls Q6H PRN Administration Nausea/Vomiting Vancomycin HCl 750 mg/ Sodium 250 mls @ 250 mls/hr 08/22/20 10:30 08/22/20 10:26 Chloride IVPB 250 mls 1030,2230 YESSENIA Administration Cefepime HCl 2 gm/ Sodium 100 mls @ 200 mls/hr 08/22/20 12:00 08/22/20 13:05 Chloride IVPB 100 mls 0400,1200,2000 YESSENIA Administration Metronidazole 500 mg/ Device 100 mls @ 100 mls/hr 08/22/20 13:00 08/22/20 13:38 IVPB 100 mls 0500,1300,2100 YESSENIA Administration Potassium Chloride 40 meq/ 1,020 mls @ 100 mls/hr 08/22/20 13:02 08/22/20 15:48 Sodium Chloride IV 1,020 mls .[id number] YESSENIA Administration Sodium Chloride 10 ml 08/22/20 09:00 12/22/20 08:16 Flush - Normal Saline 10 Ml Syringe IVF 10 ml Q12HR YESSENIA Administration - Exam Eye: PERRL, anicteric sclera Heart: RRR, no murmur, no gallops, no rubs, normal peripheral pulses Respiratory: CTAB, no wheezes, no rales, no ronchi, normal chest expansion Gastrointestinal: soft, non-tender, non-distended, normal bowel sounds, no palpable masses Extremities: no cyanosis, no edema Hosp A/P (1) Perinephric abscess Code(s): N15.1 - RENAL AND PERINEPHRIC ABSCESS Status: Acute (2) Renal cell cancer Code(s): C64.9 - MALIGNANT NEOPLASM OF UNSP KIDNEY, EXCEPT RENAL PELVIS Status: Acute Qualifiers: Laterality: left Qualified Code(s): C64.2 - Malignant neoplasm of left kid kae, except renal pelvis (3) Chronic anemia Code(s): D64.9 - ANEMIA, UNSPECIFIED Status: Chronic (4) Moderate protein malnutrition Code(s): E44.0 - MODERATE PROTEIN-CALORIE MALNUTRITION Status: Chronic (5) Hypokalemia Code(s): E87.6 - HYPOKALEMIA Status: Acute - Plan * Perinephric Abscess- s/p I&D. Will await culture results, and can tailor antibiotics pending these * Symptoms - better after I&D * Will add dietary supplements for poor oral intake * Hypokalemia-likely from GI losses- this is being replaced
[2020-08-22] MEDS: Enoxaparin Sodium 40 MG/0.4 ML SYRINGE SC SCH (21:14)
[2020-08-22 22:07] LABS: Vancomycin, Trough 13.9 ug/mL
[2020-08-23] MEDS: Vancomycin HCl 750 MG in Sodium Chloride 0.9% 250 ML 250 ML IVPB SCH ×2 (02:32→15:36)
[2020-08-23] MEDS: Cefepime 2 GM in Sodium Chloride 0.9% 100 ML IVPB SCH ×3 (03:48→21:00)
[2020-08-23] MEDS: metroNIDAZOLE 500 MG in Premix Bag 1 BAG IVPB SCH ×3 (05:42→21:16)
[2020-08-23] MEDS: Potassium Chloride 40 MEQ in Sodium Chloride 0.45% 1,000 ML IV SCH ×3 (06:30→21:00)
[2020-08-23 06:38] LABS: Hemoglobin 9.5 g/dL (12.0-16.0); Mean Corpuscular HGB CONC 31.2 g/dL (32.0-36.0); Mean Corpuscular Hemoglobin 29.7 pg (27.0-31.0); Mean Corpuscular Volume 95.2 fL (78.0-98.0); Mean Platelet Volume 6.7 fL (7.4-10.4); Platelet Count 467 thou/uL (130-400); RBC Distribution Width 15.7 % (11.5-14.5)
[2020-08-23 06:59] LABS: Anion Gap 15 mmol/L (10-20); BUN (Urea Nitrogen) 4 mg/dL (9.8-20.1); Calc. Creatinine Clearance 90 mL/min (70-130); Calcium 7.8 mg/dL (7.8-10.44); Carbon Dioxide 20 mmol/L (23-31); Chloride 105 mmol/L (98-107); Glucose 104 mg/dL (80-115); Potassium 3.7 mmol/L (3.5-5.1); Sodium 136 mmol/L (136-145)
[2020-08-23 08:20] LABS: Band 11 % (5-11); Eosinophils 1 % (0-10); Hypochromia SLIGHT = 6-15 cells (100X) (0-5/hpf); Lymphocytes 7 % (21-51); MDiff Complete? YES; Monocytes 3 % (0-10); Neutrophil 77 % (42-75); Platelet Morphology Comment Appears Increased; Polychromasia SLIGHT = 2-3 cells (100X) (0-2/hpf); Reactive Lymphocytes 1 % (0-10)
--- NOTE | 2020-08-23 08:46 | OP ---
[facility] OP NOTE DATE OF PROCEDURE: 08/23/2020 INDICATIONS: Vascular access. RESIDENTS: 1. Adriana Lopes MD, PGY-1. 2. Drew Lindo DO, PGY-3. ATTENDING: Dr. Quoc Jeter ULTRASOUND USED: Yes. CONSENT: Consent was obtained from the patient prior to the procedure. Indications, risks, and benefits were explained at length. All questions were answered. PROCEDURE SUMMARY: A time-out was performed. Hands were washed immediately prior to the procedure. I wore surgical cap, mask and protective eye wear, sterile gown, and sterile gloves throughout the procedure. The right inguinal region was prepped using chlorhexidine scrub after being shaved with a razor and draped in sterile fashion using a full drape and sterile probe cover employed. The femoral pulse was identified and the femoral vein was visualized on ultrasound. Anesthesia was achieved using 1% lidocaine. The introducer needle was inserted medial to the femoral artery, inferior to the inguinal crease and into the femoral vein with ultrasound guidance. Venous blood was withdrawn. The syringe was removed and a guidewire was advanced through the introducer needle. A small incision was made at the skin surface with a scalpel and the introducer needle was exchanged for a dilator over the guidewire. After appropriate dilation was obtained, the dilator was exchanged over the wire for a triple-lumen central venous catheter. The wire was removed and the catheter was sutured in place. A sterile covering was placed over the catheter at the insertion site. The patient tolerated the procedure well without any hemodynamic compromise. At the time of procedure completion, all ports were aspirated and flushed properly. Estimated blood loss is [address] Jeter was present and teaching throughout the procedure. Job ID: [id number] MTDD
[2020-08-23] MEDS: Bisoprolol Fumarate 5 MG TAB PO SCH (10:18)
--- NOTE | 2020-08-23 10:31 | PRG ---
DATE OF SERVICE: 08/23/2020 SUBJECTIVE: Overall, the patient tells me that she is feeling better than before drainage of the abscess. She denies nausea or vomiting today. She still has very little appetite. She is not having chest pain, difficulty breathing, or dysuria. OBJECTIVE: VITAL SIGNS: Afebrile, vitals are stable. Urine output or drain output are not being recorded. GENERAL: No acute distress. LUNGS: Unlabored breathing. ABDOMEN: Soft, appropriately tender, and nondistended. Drain still with somewhat purulent output, drain stripped. SKIN: Warm and dry. EXTREMITIES: No peripheral edema. LABORATORY DATA: Reviewed. White count 22, hemoglobin 9.5. Potassium 3.7, creatinine 0.71. ASSESSMENT AND PLAN: 1. Postop day 1, open drainage of left splenic fossa abscess. 2. Routine postop care, Pain Service assisting with DIE TURNER, out of bed, walking program, incentive spirometry, gastrointestinal and deep venous thrombosis prophylaxis. 3. Continue IV antibiotics while we watch her white count resolve. 4. I anticipate she will be in the hospital for another 3 to 4 days. Job ID: [id number]
--- NOTE | 2020-08-23 12:41 | PDOC.HOSPP ---
- Subjective Encounter Date: 08/23/20 Encounter Time: 12:39 Subjective: Ms. Alves was seen today in follow-up of perinephric abscess. She is a little more sore today, otherwise no complaints. She walked one lap around the floor this morning. She also had a large soft bowel movement. - Objective Vital Signs & Weight: Vital Signs (12 hours) Temp Pulse Resp BP Pulse Ox 08/23/20 08:00 97.7 F 73 16 116/75 98 08/23/20 04:00 97.9 F 81 18 113/73 93 L Weight Admit Weight 153 lb 3.2 oz Weight 153 lb 3 oz I&O: 08/22/20 08/23/20 08/24/20 06:59 06:59 06:59 Intake Total 1160 Output Total 45 Balance 1115 Result Diagrams: 08/23/20 06:17 08/23/20 06:17 Hospitalist ROS - Medication Medications: Active Medications Generic Name Dose Route Start Last Admin Trade Name Freq PRN Reason Stop Dose Admin Bisoprolol Fumarate 5 mg 08/18/20 09:00 08/23/20 10:18 Bisoprolol Fumarate 5 Mg Tab PO 5 mg DAILY YESSENIA Administration Enoxaparin Sodium 40 mg 08/22/20 21:00 08/22/20 21:14 Enoxaparin Sodium 40 Mg/0.4 Ml Syringe SC 40 mg 2100 YESSENIA Administration Promethazine HCl 25 mg/ Sodium 51 mls @ 204 mls/hr 08/19/20 12:33 08/19/20 17:43 Chloride IVPB 51 mls Q6H PRN Administration Nausea/Vomiting Cefepime HCl 2 gm/ Sodium 100 mls @ 200 mls/hr 08/22/20 12:00 08/23/20 03:48 Chloride IVPB 100 mls 0400,1200,2000 YESSENIA Administration Metronidazole 500 mg/ Device 100 mls @ 100 mls/hr 08/22/20 13:00 08/23/20 05:42 IVPB 100 mls 0500,1300,2100 YESSENIA Administration Potassium Chloride 40 meq/ 1,020 mls @ 100 mls/hr 08/22/20 13:02 08/23/20 10:42 Sodium Chloride IV Not Given .[id number] YESSENIA Sodium Chloride 10 ml 08/22/20 09:00 08/23/20 10:19 Flush - Normal Saline 10 Ml Syringe IVF Not Given Q12HR YESSENIA - Exam Eye: PERRL, anicteric sclera Heart: RRR, no murmur, no gallops, no rubs, normal peripheral pulses Respiratory: CTAB, no wheezes, no rales, no ronchi, normal chest expansion, no tachypnea Gastrointestinal: soft, non-tender, non-distended, normal bowel sounds, no palpable masses, no hepatomegaly Extremities: 1+ LE edema Hosp A/P (1) Perinephric abscess Code(s): N15.1 - RENAL AND PERINEPHRIC ABSCESS Status: Acute (2) Renal cell cancer Code(s): C64.9 - MALIGNANT NEOPLASM OF UNSP KIDNEY, EXCEPT RENAL PELVIS Status: Acute Qualifiers: Laterality: left Qualified Code(s): C64.2 - Malignant neoplasm of left kidney, except renal pelvis (3) Chronic anemia Code(s): D64.9 - ANEMIA, UNSPECIFIED Status: Chronic (4) Moderate protein malnutrition Code(s): E44.0 - MODERATE PROTEIN-CALORIE MALNUTRITION Status: Chronic (5) Hypokalemia Code(s): E87.6 - HYPOKALEMIA Status: Acute - Plan * Perinephric Abscess- s/p I&D. Continue IV antibiotics, and local wound care. If cultures are unavailable, may need ID assistance with regards to de- escalating antibiotics * Symptoms - She continues with the BUFFET RUNNER pump for symptom control * Continue to monitor and replace electrolytes as needed
[2020-08-23] MEDS: Enoxaparin Sodium 40 MG/0.4 ML SYRINGE SC SCH (21:01)
[2020-08-23] MEDS: fentaNYL Citrate/PF 2,000 MCG in Sodium Chloride 0.9% 60 ML IV PRN (23:47)
[2020-08-24] MEDS: Vancomycin HCl 750 MG in Sodium Chloride 0.9% 250 ML 250 ML IVPB SCH ×2 (02:02→15:47)
[2020-08-24] MEDS: Cefepime 2 GM in Sodium Chloride 0.9% 100 ML IVPB SCH ×3 (04:15→20:48)
[2020-08-24] MEDS: metroNIDAZOLE 500 MG in Premix Bag 1 BAG IVPB SCH ×3 (04:40→20:56)
[2020-08-24 05:09] LABS: Anion Gap 10 mmol/L (10-20); BUN (Urea Nitrogen) 4 mg/dL (9.8-20.1); Calc. Creatinine Clearance 98 mL/min (70-130); Calcium 7.7 mg/dL (7.8-10.44); Carbon Dioxide 25 mmol/L (23-31); Chloride 105 mmol/L (98-107); Glucose 83 mg/dL (80-115); Potassium 3.4 mmol/L (3.5-5.1); Sodium 137 mmol/L (136-145)
[2020-08-24] MEDS: Potassium Chloride 40 MEQ in Sodium Chloride 0.45% 1,000 ML IV SCH ×2 (05:12→13:07)
[2020-08-24 05:37] LABS: Band 14 % (5-11); Eosinophils 1 % (0-10); Hemoglobin 8.6 g/dL (12.0-16.0); Lymphocytes 5 % (21-51); MDiff Complete? YES; Mean Corpuscular HGB CONC 30.9 g/dL (32.0-36.0); Mean Corpuscular Hemoglobin 28.9 pg (27.0-31.0); Mean Corpuscular Volume 93.7 fL (78.0-98.0); Monocytes 2 % (0-10); Neutrophil 78 % (42-75); Platelet Count 459 thou/uL (130-400); RBC Distribution Width 15.9 % (11.5-14.5); Red Blood Cell (RBC) Count 2.96 mill/uL (4.20-5.40); White Blood Cell (WBC) Count 23.9 thou/uL (4.8-10.8)
[2020-08-24] MEDS ORDERED: Potassium Chloride 20 MEQ TAB PO SCH (08:30)
[2020-08-24] MEDS: Bisoprolol Fumarate 5 MG TAB PO SCH (09:21)
--- NOTE | 2020-08-24 12:13 | PRG ---
DATE OF SERVICE: 08/24/2020 SUBJECTIVE: The patient without complaints. Denies nausea, vomiting, fever, chills. OBJECTIVE: VITAL SIGNS: Stable. She is afebrile, 98, 84, 18, 96, 133/83. I's and O's 1750 in, 1670 out. MAREK 80 mL of serosanguineous fluid with some sediment and debris. GENERAL: The patient is in no acute distress. LUNGS: Clear. ABDOMEN: Soft. Dressings are dry. No saturation. MAREK is inadequately secured, patient is sitting on the MAREK and is unaware. EXTREMITIES: No cyanosis, clubbing, or edema. LABORATORY STUDIES: White count 23, hemoglobin 8.6, 459 platelets, 14 bands. Renal function stable at 0.65. Pleural fluid culture negative. Blood culture negative x2. She remains on Flagyl, vancomycin, cefepime. 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 1. Postop course complicated by retroperitoneal abscess, large pleural effusion reactive 2. POD 2 Laparotomy, intraabdominal washout of abscess. No intraoperative cultures obtained. RECOMMENDATIONS: 1. 64-year-old female with history of left XGP, status post nephrectomy/splenectomy 2. Retroperitoneal abscess, postop day #2. Abdominal washout, laparotomy. Continue broad-spectrum antibiotic therapy. She appears to be clinically stable. Monitor daily CBC's, BMP. Although yield may be low as She is on broad-spectrum antibiotic therapy, will obtain MAREK fluid for culture. If MAREK fluid culture also remains negative, it would be prudent to obtain Infectious Disease consult for prolonged antibiotic therapy recommendations Job ID: [id number] [facility]
--- NOTE | 2020-08-24 19:13 | PDOC.HOSPP ---
- Objective Vital Signs & Weight: Vital Signs (12 hours) Temp Pulse Resp BP Pulse Ox 08/24/20 08:16 98.4 F 84 18 138/83 96 08/24/20 08:00 96 Weight Admit Weight 153 lb 3.2 oz Weight 153 lb 3 oz I&O: 08/23/20 08/24/20 08/25/20 06:59 06:59 06:59 Intake Total 1160 1750 Output Total 45 80 35 Balance 1115 1670 -35 Result Diagrams: 08/24/20 04:25 08/24/20 04:25 Hospitalist ROS - Medication Medications: Active Medications Generic Name Dose Route Start Last Admin Trade Name Freq PRN Reason Stop Dose Admin Bisoprolol Fumarate 5 mg 08/18/20 09:00 08/24/20 09:21 Bisoprolol Fumarate 5 Mg Tab PO 5 mg DAILY YESSENIA Administration Enoxaparin Sodium 40 mg 08/22/20 21:00 08/23/20 21:01 Enoxaparin Sodium 40 Mg/0.4 Ml Syringe SC 40 mg 2100 YESSENIA Administration Promethazine HCl 25 mg/ Sodium 51 mls @ 204 mls/hr 08/19/20 12:33 08/19/20 17:43 Chloride IVPB 51 mls Q6H PRN Administration Nausea/Vomiting Cefepime HCl 2 gm/ Sodium 100 mls @ 200 mls/hr 08/22/20 12:00 08/24/20 11:57 Chloride IVPB 100 mls 0400,1200,2000 YESSENIA Administration Metronidazole 500 mg/ Device 100 mls @ 100 mls/hr 08/22/20 13:00 08/24/20 13:07 IVPB 100 mls 0500,1300,2100 YESSENIA Administration Potassium Chloride 40 meq/ 1,020 mls @ 100 mls/hr 08/22/20 13:02 08/24/20 13:07 Sodium Chloride IV 1,020 mls .[id number] YESSENIA Administration Fentanyl Citrate 2,000 mcg/ 100 mls @ 0 mls/hr 08/22/20 13:09 08/23/20 23:47 Sodium Chloride IV 100 mls INF PRN Administration Pain As Directed Vancomycin HCl 750 mg/ Sodium 250 mls @ 250 mls/hr 08/23/20 14:00 08/24/20 15:47 Chloride IVPB 250 mls 0200,1400 YESSENIA Administration Sodium Chloride 10 ml 08/22/20 09:00 08/24/20 09:22 Flush - Normal Saline 10 Ml Syringe IVF Not Given Q12HR YESSENIA
--- NOTE | 2020-08-24 19:15 | PDOC.HOSPP ---
- Subjective Encounter Date: 08/24/20 Encounter Time: 09:30 Subjective: Patient seen for follow-up regarding perinephric abscess. She denies chest pain or shortness of breath. - Objective Vital Signs & Weight: Vital Signs (12 hours) Temp Pulse Resp BP Pulse Ox 08/24/20 08:16 98.4 F 84 18 138/83 96 08/24/20 08:00 96 Weight Admit Weight 153 lb 3.2 oz Weight 153 lb 3 oz I&O: 08/23/20 08/24/20 08/25/20 06:59 06:59 06:59 Intake Total 1160 1750 Output Total 45 80 35 Balance 1115 1670 -35 Result Diagrams: 08/24/20 04:25 08/24/20 04:25 Additional Labs: I reviewed patient's labs and MAR Hospitalist ROS - Review of Systems Cardiovascular: denies: chest pain, palpitations, orthopnea, paroxysmal noc. dyspnea, edema, light headedness Gastrointestinal: denies: nausea, vomiting, abdominal pain, diarrhea, constipation, melena, hematochezia - Medication Medications: Active Medications Generic Name Dose Route Start Last Admin Trade Name Freq PRN Reason Stop Dose Admin Bisoprolol Fumarate 5 mg 08/18/20 09:00 08/24/20 09:21 Bisoprolol Fumarate 5 Mg Tab PO 5 mg DAILY YESSENIA Administration Enoxaparin Sodium 40 mg 08/22/20 21:00 08/23/20 21:01 Enoxaparin Sodium 40 Mg/0.4 Ml Syringe SC 40 mg 2100 YESSENIA Administration Promethazine HCl 25 mg/ Sodium 51 mls @ 204 mls/hr 08/19/20 12:33 08/19/20 17:43 Chloride IVPB 51 mls Q6H PRN Administration Nausea/Vomiting Cefepime HCl 2 gm/ Sodium 100 mls @ 200 mls/hr 08/22/20 12:00 08/24/20 11:57 Chloride IVPB 100 mls 0400,1200,2000 YESSENIA Administration Metronidazole 500 mg/ Device 100 mls @ 100 mls/hr 08/22/20 13:00 08/24/20 13:07 IVPB 100 mls 0500,1300,2100 YESSENIA Administration Potassium Chloride 40 meq/ 1,020 mls @ 100 mls/hr 08/22/20 13:02 08/24/20 13:07 Sodium Chloride IV 1,020 mls .[id number] YESSENIA Administration Fentanyl Citrate 2,000 mcg/ 100 mls @ 0 mls/hr 08/22/20 13:09 08/23/20 23:47 Sodium Chloride IV 100 mls INF PRN Administration Pain As Directed Vancomycin HCl 750 mg/ Sodium 250 mls @ 250 mls/hr 08/23/20 14:00 08/24/20 15:47 Chloride IVPB 250 mls 0200,1400 YESSENIA Administration Sodium Chloride 10 ml 08/22/20 09:00 08/24/20 09:22 Flush - Normal Saline 10 Ml Syringe IVF Not Given Q12HR YESSENIA - Exam General Appearance: awake alert Eye: anicteric sclera ENT: moist mucosa Neck: supple Heart: RRR Respiratory: CTAB Gastrointestinal: soft Skin: no rashes Psychiatric: normal affect Hosp A/P - Plan Hosp A/P -Assessment (1) Perinephric abscess Code(s): N15.1 - RENAL AND PERINEPHRIC ABSCESS Status: Acute (2) Hypokalemia Code(s): E87.6 - HYPOKALEMIA Status: Acute (3) Renal cell cancer Code(s): C64.9 - MALIGNANT NEOPLASM OF UNSP KIDNEY, EXCEPT RENAL PELVIS Status: Chronic Qualifiers: Laterality: left Qualified Code(s): C64.2 - Malignant neoplasm of left kidney, except renal pelvis (4) Moderate protein malnutrition Code(s): E44.0 - MODERATE PROTEIN-CALORIE MALNUTRITION Status: Chronic (5) Chronic anemia Code(s): D64.9 - ANEMIA, UNSPECIFIED Status: Chronic - Plan * Perinephric Abscess- s/p I&D. Continue IV opium, vancomycin and metronidazole. * Pain-patient is on BREAKDOWN PERSON pump. * Replace potassium
[2020-08-24] MEDS: Enoxaparin Sodium 40 MG/0.4 ML SYRINGE SC SCH (20:49)
[2020-08-25 01:51] LABS: Vancomycin, Trough 15.5 ug/mL
[2020-08-25] MEDS: Vancomycin HCl 750 MG in Sodium Chloride 0.9% 250 ML 250 ML IVPB SCH ×2 (02:32→14:32)
[2020-08-25] MEDS: Cefepime 2 GM in Sodium Chloride 0.9% 100 ML IVPB SCH ×3 (04:15→20:27)
[2020-08-25] MEDS: Potassium Chloride 40 MEQ in Sodium Chloride 0.45% 1,000 ML IV SCH ×2 (04:15→13:00)
[2020-08-25] MEDS: metroNIDAZOLE 500 MG in Premix Bag 1 BAG IVPB SCH ×3 (05:21→21:35)
[2020-08-25 08:15] LABS: Hemoglobin 8.5 g/dL (12.0-16.0); Mean Corpuscular Hemoglobin 29.2 pg (27.0-31.0); Mean Corpuscular Volume 94.2 fL (78.0-98.0); Mean Platelet Volume 6.6 fL (7.4-10.4); Platelet Count 481 thou/uL (130-400); RBC Distribution Width 16.5 % (11.5-14.5); White Blood Cell (WBC) Count 19.9 thou/uL (4.8-10.8)
[2020-08-25 08:31] LABS: Anisocytosis SLIGHT = 6-15 cells (100X) (0-5/hpf); Burr Cells SLIGHT = 2-5 cells (100X) (0-1/hpf); Eosinophils 1 % (0-10); Large Platelets SLIGHT; Lymphocytes 8 % (21-51); MDiff Complete? YES; Monocytes 12 % (0-10); Neutrophil 79 % (42-75); Platelet Morphology Comment Appears Increased; Polychromasia SLIGHT = 2-3 cells (100X) (0-2/hpf); Target Cells SLIGHT = 2-5 cells (100X) (0-1/hpf)
[2020-08-25] MEDS: Bisoprolol Fumarate 5 MG TAB PO SCH (08:52)
[2020-08-25 09:29] LABS: Anion Gap 13 mmol/L (10-20); BUN (Urea Nitrogen) 5 mg/dL (9.8-20.1); Calc. Creatinine Clearance 105 mL/min (70-130); Carbon Dioxide 22 mmol/L (23-31); Chloride 104 mmol/L (98-107); Glucose 69 mg/dL (80-115); Potassium 4.1 mmol/L (3.5-5.1); Sodium 135 mmol/L (136-145)
--- NOTE | 2020-08-25 13:16 | PDOC.HOSPP ---
- Subjective Encounter Date: 08/25/20 Encounter Time: 10:20 Subjective: Patient trying to stay away from the SAP INTEGRATION ARCHITECT pain pump but not able to and pain is adequately controlled currently. No other acute complaints. White count is trending down. Blood cultures negative for any growth. - Objective Vital Signs & Weight: Vital Signs (12 hours) Temp Pulse Resp BP Pulse Ox 08/25/20 07:34 98.6 F 76 18 121/79 94 L 08/25/20 04:00 98.6 F 81 18 131/78 94 L Weight Admit Weight 153 lb 3.2 oz Weight 153 lb 3 oz I&O: 08/24/20 08/25/20 08/26/20 06:59 06:59 06:59 Intake Total 1750 Output Total 80 55 Balance 1670 -55 Result Diagrams: 08/25/20 07:53 08/25/20 07:53 Hospitalist ROS - Medication Medications: Active Medications Generic Name Dose Route Start Last Admin Trade Name Freq PRN Reason Stop Dose Admin Bisoprolol Fumarate 5 mg 08/18/20 09:00 08/25/20 08:52 Bisoprolol Fumarate 5 Mg Tab PO 5 mg DAILY YESSENIA Administration Enoxaparin Sodium 40 mg 08/22/20 21:00 08/24/20 20:49 Enoxaparin Sodium 40 Mg/0.4 Ml Syringe SC 40 mg 2100 YESSENIA Administration Promethazine HCl 25 mg/ Sodium 51 mls @ 204 mls/hr 08/19/20 12:33 08/19/20 17:43 Chloride IVPB 51 mls Q6H PRN Administration Nausea/Vomiting Cefepime HCl 2 gm/ Sodium 100 mls @ 200 mls/hr 08/22/20 12:00 08/25/20 04:15 Chloride IVPB 100 mls 0400,1200,2000 YESSENIA Administration Metronidazole 500 mg/ Device 100 mls @ 100 mls/hr 08/22/20 13:00 08/25/20 05 :21 IVPB 100 mls 0500,1300,2100 YESSENIA Administration Potassium Chloride 40 meq/ 1,020 mls @ 100 mls/hr 08/22/20 13:02 08/25/20 04:15 Sodium Chloride IV 1,020 mls .[id number] YESSENIA Administration Fentanyl Citrate 2,000 mcg/ 100 mls @ 0 mls/hr 08/22/20 13:09 08/23/20 23:47 Sodium Chloride IV 100 mls INF PRN Administration Pain As Directed Vancomycin HCl 750 mg/ Sodium 250 mls @ 250 mls/hr 08/23/20 14:00 08/25/20 02:32 Chloride IVPB 250 mls 0200,1400 YESSENIA Administration Sodium Chloride 10 ml 08/22/20 09:00 08/25/20 08:53 Flush - Normal Saline 10 Ml Syringe IVF 10 ml Q12HR YESSENIA Administration - Exam General Appearance: NAD, awake alert Eye: PERRL ENT: normocephalic atraumatic Neck: supple Heart: RRR Respiratory: CTAB, normal chest expansion Gastrointestinal: soft, normal bowel sounds Extremities: no cyanosis, 1+ LE edema Neurological: cranial nerve grossly intact, no new deficit Psychiatric: A&O x 3 Hosp A/P - Plan (1) Perinephric abscess Code(s): N15.1 - RENAL AND PERINEPHRIC ABSCESS Status: Acute (2) Hypokalemia Code(s): E87.6 - HYPOKALEMIA Status: Acute (3) Renal cell cancer Code(s): C64.9 - MALIGNANT NEOPLASM OF UNSP KIDNEY, EXCEPT RENAL PELVIS Status: Chronic Qualifiers: Laterality: left Qualified Code(s): C64.2 - Malignant neoplasm of left kidney, except renal pelvis (4) Moderate protein malnutrition Code(s): E44.0 - MODERATE PROTEIN-CALORIE MALNUTRITION Status: Chronic (5) Chronic anemia Code(s): D64.9 - ANEMIA, UNSPECIFIED Status: Chronic - Plan * Perinephric Abscess- s/p I&D. C * -Dr. Vyas is following. Likely visit on Friday. * Cultures negative. * She is on IV antibiotics since with vancomycin and cefepime. Will change to p.o. antibiotics once white count trending down reasonably well. * * Pain-patient is on SAP INTEGRATION ARCHITECT pump.--- We will put her on stool softener. * Hypokalemia resolved.
[2020-08-25] MEDS: fentaNYL Citrate/PF 2,000 MCG in Sodium Chloride 0.9% 60 ML IV PRN (20:28)
[2020-08-25] MEDS: Enoxaparin Sodium 40 MG/0.4 ML SYRINGE SC SCH (21:34)
[2020-08-25] MEDS: Senokot S 8.6-50 MG TAB PO SCH (21:42)
[2020-08-26] MEDS: Potassium Chloride 40 MEQ in Sodium Chloride 0.45% 1,000 ML IV SCH ×3 (02:29→16:07)
[2020-08-26] MEDS: Vancomycin HCl 750 MG in Sodium Chloride 0.9% 250 ML 250 ML IVPB SCH ×2 (02:30→14:33)
[2020-08-26] MEDS: Cefepime 2 GM in Sodium Chloride 0.9% 100 ML IVPB SCH ×3 (04:04→20:16)
[2020-08-26] MEDS: metroNIDAZOLE 500 MG in Premix Bag 1 BAG IVPB SCH ×3 (05:37→20:54)
[2020-08-26] MEDS: Senokot S 8.6-50 MG TAB PO SCH (08:32)
[2020-08-26] MEDS: Bisoprolol Fumarate 5 MG TAB PO SCH (08:32)
[2020-08-26] MEDS ORDERED: HYDROcodone/Acetaminophen 10/325 mg Tablet PO PRN (09:25)
[2020-08-26] MEDS ORDERED: traMADol HCl 50 MG TAB PO PRN ×2 (09:26)
[2020-08-26 10:19] LABS: #Eosinphils 0.2 thou/uL (0.0-0.7); #Lymphocytes 2.6 thou/uL (1.20-3.40); #Monocytes 1.2 thou/uL (0.11-0.59); #Neutrophils 13.3 thou/uL (1.40-6.50); %Basophils 0.3 % (0.0-1.0); %Eosinophils 1.1 % (0.0-10.0); %Lymphocytes 14.8 % (21.0-51.0); %Monocytes 6.9 % (0.0-10.0); Hemoglobin 8.6 g/dL (12.0-16.0); Mean Corpuscular HGB CONC 31.6 g/dL (32.0-36.0); Mean Corpuscular Volume 94.8 fL (78.0-98.0); Mean Platelet Volume 6.6 fL (7.4-10.4); Platelet Count 480 thou/uL (130-400); RBC Distribution Width 16.6 % (11.5-14.5); Red Blood Cell (RBC) Count 2.88 mill/uL (4.20-5.40); White Blood Cell (WBC) Count 17.3 thou/uL (4.8-10.8)
[2020-08-26] MEDS: HYDROcodone/Acetaminophen 10/325 mg Tablet PO PRN ×2 (11:22→17:55)
--- NOTE | 2020-08-26 12:27 | PDOC.HOSPP ---
- Subjective Encounter Date: 08/26/20 Encounter Time: 11:10 Subjective: Patient is doing well she is still using the HOT METAL MIXER OPERATOR pain pump she had good bowel movement. - Objective Vital Signs & Weight: Vital Signs (12 hours) Temp Pulse Resp BP Pulse Ox 08/26/20 10:58 98.2 F 63 18 129/82 95 08/26/20 08:23 98.2 F 63 18 143/78 H 95 08/26/20 04:36 98.3 F 65 18 133/77 95 Weight Admit Weight 153 lb 3.2 oz Weight 153 lb 3 oz I&O: 08/25/20 08/26/20 08/27/20 06:59 06:59 06:59 Output Total 55 25 Balance -55 -25 Result Diagrams: 08/26/20 09:53 08/25/20 07:53 Hospitalist ROS - Medication Medications: Active Medications Generic Name Dose Route Start Last Admin Trade Name Freq PRN Reason Stop Dose Admin Hydrocodone Bitart/Acetaminophen 2 tab 08/26/20 09:25 08/26/20 11:22 Hydrocodone/Acetaminophen 10/325 Mg Tablet PO 2 tab Q4H PRN Administration Pain 5-10 Bisoprolol Fumarate 5 mg 08/18/20 09:00 08/26/20 08:32 Bisoprolol Fumarate 5 Mg Tab PO 5 mg DAILY YESSENIA Administration Enoxaparin Sodium 40 mg 08/22/20 21:00 08/25/20 21:34 Enoxaparin Sodium 40 Mg/0.4 Ml Syringe SC 40 mg 2100 YESSENIA Administration Promethazine HCl 25 mg/ Sodium 51 mls @ 204 mls/hr 08/19/20 12:33 08/19/20 17:43 Chloride IVPB 51 mls Q6H PRN Administration Nausea/Vomiting Cefepime HCl 2 gm/ Sodium 100 mls @ 200 mls/hr 08/22/20 12:00 08/26/20 11:21 Chloride IVPB 100 mls 0400,1200,2000 YESSENIA Administration Metronidazole 500 mg/ Device 100 mls @ 100 mls/hr 08/22/20 13:00 08/26/20 05:37 IVPB 100 mls 0500,1300,2100 YESSENIA Administration Potassium Chloride 40 meq/ 1,020 mls @ 100 mls/hr 08/22/20 13:02 08/26/20 08:32 Sodium Chloride IV 1,020 mls .[id number] YESSENIA Administration Vancomycin HCl 750 mg/ Sodium 250 mls @ 250 mls/hr 08/23/20 14:00 08/26/20 02:30 Chloride IVPB 250 mls 0200,1400 YESSENIA Administration Senna/Docusate Sodium 2 tab 08/25/20 21:00 08/26/20 08:32 Senokot S 8.6-50 Mg Tab PO Not Given BID YESSENIA Sodium Chloride 10 ml 08/22/20 09:00 08/26/20 08:33 Flush - Normal Saline 10 Ml Syringe IVF 10 ml Q12HR YESSENIA Administration - Exam General Appearance: NAD, awake alert Eye: PERRL ENT: normocephalic atraumatic Neck: supple Respiratory: CTAB, normal chest expansion Gastrointestinal: soft, normal bowel sounds Neurological: cranial nerve grossly intact, no focal deficits Psychiatric: normal affect, normal behavior, A&O x 3 Hosp A/P - Plan (1) Perinephric abscess Code(s): N15.1 - RENAL AND PERINEPHRIC ABSCESS Status: Acute (2) Hypokalemia Code(s): E87.6 - HYPOKALEMIA Status: Acute (3) Renal cell cancer Code(s): C64.9 - MALIGNANT NEOPLASM OF UNSP KIDNEY, EXCEPT RENAL PELVIS Status: Chronic Qualifiers: Laterality: left Qualified Code(s): C64.2 - Malignant neoplasm of left kidney, except renal pelvis (4) Moderate protein malnutrition Code(s): E44.0 - MODERATE PROTEIN-CALORIE MALNUTRITION Status: Chronic (5) Chronic anemia Code(s): D64.9 - ANEMIA, UNSPECIFIED Status: Chronic - Plan * Perinephric Abscess- s/p I&D. C * -Dr. Vyas is following. Likely visit on Friday. * Cultures negative. * She is on IV antibiotics since with vancomycin and cefepime. Will change to p.o. antibiotics once white count trending down reasonably well. * * Pain-patient is on HOT METAL MIXER OPERATOR pump.--- We will put her on stool softener. * Hypokalemia resolved. * * Try to wean her off pain pump scheduled analgesic po * *
--- NOTE | 2020-08-26 14:37 | PRG ---
DATE OF SERVICE: 08/26/2020 SUBJECTIVE: The patient had an episode of emesis and began to have diarrhea yesterday. Her stool softeners were held. OBJECTIVE: VITAL SIGNS: Stable. She is afebrile. MAREK output 75, 25. It is mostly serous. GENERAL: The patient is in no acute distress. HEART: Regular rate. LUNGS: Clear. ABDOMEN: Soft. Incision is clean, dry, and intact. No rigidity. No rebound. No significant drainage from her flank nephrostomy tube site. EXTREMITIES: No cyanosis, clubbing, or edema. LABORATORY DATA: White count decreased from 19 to 17, hemoglobin stable at 8.6. No left shift. Creatinine stable at 0.61. Blood culture remains negative, I did send the MAREK culture which is negative. IMPRESSION AND PLAN: 1. Ms. 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 2. Status post exploratory laparotomy, abdominal washout due to retroperitoneal abscess, the patient known to have psoas abscess with her xanthogranulomatous pyelonephritis. Continue broad-spectrum IV antibiotic therapy as above per Primary As her cultures remain negative, elective Infectious Disease consult for recommendations of IV antibiotic therapy as she presented with complex infection, psoas abscess. check MAREK, amylase and lipase due to new onset nausea. monitor her diarrhea, as she is on Flagyl and vancomycin. Low yield for stool culture at this time. Job ID: [id number] MTDD
[2020-08-26] MEDS: Enoxaparin Sodium 40 MG/0.4 ML SYRINGE SC SCH (20:55)
--- NOTE | 2020-08-26 22:42 | CON ---
DATE OF CONSULTATION: 08/26/2020 REASON FOR CONSULTATION: Abscess in the retroperitoneal area following nephrectomy. HISTORY OF PRESENT ILLNESS: A 64-year-old who has a history of nephrolithiasis, who required a percutaneous nephrolithotomy in 2015 done in [facility]. She does not remember the name of the urologist who did it. Basically, he retired and she never went back to see anybody replacing him because she felt well and this status persisted until sometime in June when she noticed a lump in the left back area at the flank. This enlarged and eventually drained a purulent exudate, which had a foul odor. The patient was feeling unwell and ended up in the emergency room and was initially seen on July 11. The initial findings included a temperature 97.4, BP 120/79, and at this time was at [facility]. The exam then the lungs were normal. Heart exam normal. Abdomen was not tender. There is an open wound in the left mid back region, draining large amounts of thick purulent exudate white in color. She had an abdomen and pelvis CT scan, which demonstrated enlargement of the left kidney with abnormal appearance, primarily fluid distention of the calyceal system, multifocal gas and fluid containing abscess, fragmented stones present throughout the collecting structures in the cortex measuring up to 1.5 cm in the inferior pole, gas and fluid was dissecting posteriorly from the left kidney into the lateral aspect of the left psoas muscle. The bowel appeared to be normal. There was evidence of calcification throughout the arterial structures. The patient underwent a nephrectomy. During the procedure, there was a laceration of the splenic hilum and the patient had to undergo splenectomy as well. From that admission, there was one sample for urine culture, which showed no growth at 36 hours. No samples from the nephrectomy specimen are available. 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 Five lymph nodes were negative for cancer. There was evidence of marked pyelonephritis, glomerulosclerosis, and tubular atrophy. The splenic tissue had reactive changes and congestion, but no malignancy. The patient was discharged on July 31 and basically she was discharged on her home medications, which include hydrocodone and docusate. She presented back in the emergency room on August 17 with worsening left flank pain. Basically, she had packing in the area and on the Friday before the admission date, the packing was extruded and she felt unwell with pain which she rated 10/10 including pleuritic pain and she was nauseated, fatigued. She did not have any fever documented. No diarrhea. No dyspnea. No chest pain. She had a CT done at the [facility], which showed this time a multiloculated fluid collection and previous nephrectomy space. The largest of the locule is measured about 5 cm in greatest dimension without air. So she was taken back to the operating room and had I and D of the site. Basically, the previous incision was reopened. The colon and omentum were adherent to the incision site, but dissected free without obvious injury. There was significant amount of purulent drainage resulting. This was washed. The patient has been given cefepime and vancomycin and Flagyl. Currently, Ms. Alves is awake. She is having moderate pain in the left side of her abdomen. No headaches. No dyspnea or chest pain. No cough. She is voiding without difficulty. No joint symptoms. No neurological symptoms. PAST MEDICAL HISTORY: Osteoarthritis, prior right knee replacement, hypertension, hyperlipidemia, nephrolithiasis with requirement for left percutaneous nephrolithotomy in 2014. An imaging study from that area from 2013 demonstrated staghorn calculus in the left kidney. She has had the nephrectomy recently following the nephrolithotomy a few years after that. 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 In addition to that the patient had chronic and acute pyelonephritis. SOCIAL HISTORY: She lives in [place] by herself. She quit smoking a few years ago. Does not drink alcoholic beverages. No drug use. FAMILY HISTORY: Noncontributory. ALLERGIES: NONE. CURRENT MEDICATIONS: Include: 1. Cefepime. 2. Vancomycin p.r.n. medications. 3. Naloxone. 4. Promethazine. 5. Zolpidem. PHYSICAL EXAMINATION: VITAL SIGNS: She has been afebrile throughout the hospital stay. Blood pressure 115/71, heart rate 76, respiratory rate 18, O2 saturation 92% to 95%. SKIN: Shows the left abdominal small granulating elliptical wound measuring about 1 cm. She does not have a Aquino catheter. She has a peripheral IV access. HEENT: Ocular movements conjugate. Oral cavity with a few remaining teeth. Oral mucosa is normal. There is now a small area of bruising in the posterior oropharynx probably from the intubation. NECK: Supple. Jugular venous distention. LUNGS: Symmetric air entry. Diminished breath sounds in the left side. HEART: S1 and S2. Regular rate. ABDOMEN: Soft, moderately distended with tenderness in the left side, which is [id number] and she has dressings covering the area and I did not remove those. EXTREMITIES: She is able to move extremities equally. No edema. Pulses 1+ in dorsalis pedis. Plantar response flexor. NEUROLOGIC: Awake, alert, oriented. Follows commands. LABORATORY DATA: White cell count 20,000, now is down to 17,000; hemoglobin 8.6; platelets 480,000 with 77% neutrophils. Sodium 135, creatinine 0.61. She had a thoracentesis with LDH 204, glucose 111, total protein 6.1, amylase 28. SARS-CoV-2 not detected. She has had cultures from the MAREK drainage. Those are no growth at 48 hours. Those were submitted on the . We have 2 blood culture sets from August 17. Unfortunately, no cultures were submitted from the specimen, neither at the nephrectomies date or later more recently when the abscess was irrigated and debrided. ASSESSMENT: 1. Nephrolithiasis with prior percutaneous nephrolithotomy of a staghorn calculus in 2014. 2. Pyelonephritis, chronic and acute with renal cell cancer in situ, which has been removed entirely. 3. Abscess in retroperitoneal space following nephrectomy. DISCUSSION: Since we do not have identification of the pathogen, it will be difficult to precisely determine which regimen other than a very broad-spectrum regimen will be adequate to treat this infection. We will submit Karius test to see if we have any fragments of DNA that have remained in plasma that might give us a hint as to what the pathogen is. May have to switch her to a combination of meropenem and vancomycin. Typically, MRSA usually is quite persistent and one would expect at least in the Gram stain to have some residual samples with MRSA in it so that makes it less likely that this process is caused by Staphylococcus aureus or methicillin-resistant Staphylococcus aureus. I bet that it is going to sleeve turner to be a gram-negative demetrice and anaerobe could be involved as well. Constance sp. is also a possibility. Mycobacterial and other fungal pathogens less likely. Job ID: [id number] NICOLAS
[2020-08-27] MEDS: Vancomycin HCl 750 MG in Sodium Chloride 0.9% 250 ML 250 ML IVPB SCH ×2 (01:41→16:02)
[2020-08-27] MEDS: Cefepime 2 GM in Sodium Chloride 0.9% 100 ML IVPB SCH ×2 (03:38→11:50)
[2020-08-27] MEDS: Potassium Chloride 40 MEQ in Sodium Chloride 0.45% 1,000 ML IV SCH ×2 (04:56→18:13)
[2020-08-27] MEDS: metroNIDAZOLE 500 MG in Premix Bag 1 BAG IVPB SCH ×2 (04:56→14:15)
[2020-08-27 06:35] LABS: #Basophils 0.1 thou/uL (0.0-0.2); #Eosinphils 0.2 thou/uL (0.0-0.7); #Lymphocytes 3.4 thou/uL (1.20-3.40); #Monocytes 1.1 thou/uL (0.11-0.59); #Neutrophils 11.4 thou/uL (1.40-6.50); %Basophils 0.5 % (0.0-1.0); %Eosinophils 1.5 % (0.0-10.0); %Lymphocytes 21.1 % (21.0-51.0); %Monocytes 6.7 % (0.0-10.0); %Neutrophils 70.3 % (42.0-75.0); Hemoglobin 9.7 g/dL (12.0-16.0); Mean Corpuscular HGB CONC 31.1 g/dL (32.0-36.0); Mean Corpuscular Hemoglobin 29.3 pg (27.0-31.0); Mean Platelet Volume 6.9 fL (7.4-10.4); Platelet Count 537 thou/uL (130-400); RBC Distribution Width 16.7 % (11.5-14.5); Red Blood Cell (RBC) Count 3.32 mill/uL (4.20-5.40); White Blood Cell (WBC) Count 16.3 thou/uL (4.8-10.8)
[2020-08-27 06:46] LABS: Anion Gap 17 mmol/L (10-20); BUN (Urea Nitrogen) 5 mg/dL (9.8-20.1); Calc. Creatinine Clearance 97 mL/min (70-130); Calcium 8.2 mg/dL (7.8-10.44); Carbon Dioxide 22 mmol/L (23-31); Chloride 103 mmol/L (98-107); Glucose 71 mg/dL (80-115); Potassium 4.2 mmol/L (3.5-5.1); Sodium 138 mmol/L (136-145)
[2020-08-27] MEDS: Bisoprolol Fumarate 5 MG TAB PO SCH ×2 (09:28→09:30)
[2020-08-27] MEDS: Promethazine HCl 25 MG in Sodium Chloride 0.9% 50 ML IVPB PRN (13:18)
--- NOTE | 2020-08-27 13:21 | PDOC.HOSPP ---
- Subjective Encounter Date: 08/27/20 Encounter Time: 10:45 Subjective: Patient seen this morning she is off CHEMICALS FERMENTATION OPERATOR pain pump. She is on [place] and Ultram and she seems to be okay with this regimen - Objective Vital Signs & Weight: Vital Signs (12 hours) Temp Pulse Resp BP Pulse Ox 08/27/20 08:00 96 08/27/20 07:44 98.4 F 62 18 128/85 96 Weight Admit Weight 153 lb 3.2 oz Weight 153 lb 3 oz I&O: 08/26/20 08/27/20 08/28/20 06:59 06:59 06:59 Intake Total 3960 Output Total 25 10 Balance -25 3950 Result Diagrams: 08/27/20 06:05 08/27/20 06:05 Hospitalist ROS - Medication Medications: Active Medications Generic Name Dose Route Start Last Admin Trade Name Freq PRN Reason Stop Dose Admin Hydrocodone Bitart/Acetaminophen 2 tab 08/26/20 09:25 08/26/20 17:55 Hydrocodone/Acetaminophen 10/325 Mg Tablet PO 2 tab Q4H PRN Administration Pain 5-10 Bisoprolol Fumarate 5 mg 08/18/20 09:00 08/27/20 09:30 Bisoprolol Fumarate 5 Mg Tab PO Not Given DAILY YESSENIA Enoxaparin Sodium 40 mg 08/22/20 21:00 08/26/20 20:55 Enoxaparin Sodium 40 Mg/0.4 Ml Syringe SC 40 mg 2100 YESSENIA Administration Promethazine HCl 25 mg/ Sodium 51 mls @ 204 mls/hr 08/19/20 12:33 08/27/20 13:18 Chloride IVPB 51 mls Q6H PRN Administration Nausea/Vomiting Cefepime HCl 2 gm/ Sodium 100 mls @ 200 mls/hr 08/22/20 12:00 08/27/20 11:50 Chloride IVPB 100 mls 0400,1200,2000 YESSENIA Administration Metronidazole 500 mg/ Device 100 mls @ 100 mls/hr 08/22/20 13:00 08/27/20 04:56 IVPB 100 mls 0500,1300,2100 YESSENIA Administration Potassium Chloride 40 meq/ 1,020 mls @ 100 mls/hr 08/22/20 13:02 08/27/20 04:56 Sodium Chloride IV 1,020 mls .[id number] YESSENIA Administration Vancomycin HCl 750 mg/ Sodium 250 mls @ 250 mls/hr 08/23/20 14:00 08/27/20 01:41 Chloride IVPB 250 mls 0200,1400 YESSENIA Administration Ondansetron HCl 4 mg 08/22/20 13:09 08/27/20 09:30 Ondansetron Pf 4 Mg/2 Ml Vial IVP 4 mg Q6H PRN Administration Nausea/Vomiting Sodium Chloride 10 ml 08/22/20 09:00 08/27/20 09:28 Flush - Normal Saline 10 Ml Syringe IVF 10 ml Q12HR YESSENIA Administration - Exam General Appearance: NAD, awake alert Eye: PERRL ENT: normocephalic atraumatic Neck: supple Heart: RRR Respiratory: CTAB, normal chest expansion Gastrointestinal: soft, normal bowel sounds Neurological: cranial nerve grossly intact, no weakness, no focal deficits Musculoskeletal: generalized weakness Psychiatric: A&O x 3 Hosp A/P - Plan (1) Perinephric abscess -History of nephrolithiasis with percutaneous nephrolithotomy for staghorn calculus in 2014 Acute on chronic pyelonephritis 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 Abscess in the retroperitoneal space following nephrectomy Status post simple left nephrectomy Status post exploratory laparotomy and abdominal washout due to retroperitoneal abscess Psoas abscess (2) Hypokalemia Code(s): E87.6 - HYPOKALEMIA Status: Acute (3) Renal cell cancer Code(s): C64.9 - MALIGNANT NEOPLASM OF UNSP KIDNEY, EXCEPT RENAL PELVIS Status: Chronic Qualifiers: Laterality: left Qualified Code(s): C64.2 - Malignant neoplasm of left kidney, except renal pelvis (4) Moderate protein malnutrition Code(s): E44.0 - MODERATE PROTEIN-CALORIE MALNUTRITION Status: Chronic (5) Chronic anemia Code(s): D64.9 - ANEMIA, UNSPECIFIED Status: Chronic - Plan * Perinephric Abscess- s/p I&D. * * -Dr. Vyas is following. Likely visit on Friday. * Cultures negative. * She is on IV antibiotics since with vancomycin and cefepime. Will change to p.o. antibiotics once white count trending down reasonably well. * * Pain-patient is on CHEMICALS FERMENTATION OPERATOR pump.--- We will put her on stool softener. * Hypokalemia resolved. * * Try to wean her off pain pump scheduled analgesic po * Patient weaned off from her CHEMICALS FERMENTATION OPERATOR pump Karius test has been sent out to find any fragments of DNA that would give us a clue for the pathogen until then will continue with the broad-spectrum antibiotic including Merrem and vancomycin. Amylase and lipase levels are in the normal range. Due to her nausea I also switched her antibiotics, as recommended by the ID to Merrem and vancomycin Walking program Patient lives alone We will try to arrange home health when we are ready to discharge her.
--- NOTE | 2020-08-27 13:31 | PRG ---
DATE OF SERVICE: 08/27/2020 SUBJECTIVE: passing gas, loose bowel movement, continues to have intermittent nausea. OBJECTIVE: VITAL SIGNS: Stable, afebrile. I's and O's, MAREK output is minimal, 10 mL, mostly serous, stripped at bedside with no significant debris. GENERAL: The patient is in no acute distress. HEART: Regular rate. LUNGS: Clear. ABDOMEN: Soft. Incision is clean, dry, and intact. some incisional discomfort as anticipated. No flank drainage or erythema is appreciated. No fluctuance. EXTREMITIES: No cyanosis, clubbing, or edema. PERTINENT LABORATORY DATA: White count trending down to 16,000, hemoglobin 9.7, platelet 937. No significant shift or bandemia. BMP profile is within normal limits. MAREK, amylase, which I sent yesterday were consistent with peritoneal fluid. Blood culture, pleural fluid culture, negative. IMPRESSION: 1. Ms. Alves is a 64-year-old female with history of left staghorn, left xanthogranulomatous pyelonephritis, status post left simple nephrectomy. 2. Status post exploratory laparotomy, abdominal washout due to retroperitoneal, psoas abscess, reactive large pleural effusion. RECOMMENDATIONS: 1. As intraoperative cultures were not obtained, insetting of blood culture, MAREK fluid culture negative. Infectious Disease consult was initiated. I did consult with Dr. Muñoz regarding patient's clinical course and complicated history. I appreciate his input, as further testing is to be done for recommendations of IV antibiotic therapy. anticipate she will require PICC line. 2. Intermittent nausea, having bowel movements and intermittent diarrhea. monitor for now, if worsening nausea, vomiting, or leukocytosis, restaging CT is indicated. patient overall remains stable at this time. Dr. Vyas will resume her care tomorrow. Job ID: [id number] [facility]
[2020-08-27] MEDS: MEROPENEM 1 GM/50 ML 1 GM in Premix Bag 1 BAG IVPB SCH ×2 (13:51→22:00)
[2020-08-27] MEDS ORDERED: Meropenem 1 GM in Sodium Chloride 0.9% 100 ML IVPB SCH (14:00)
[2020-08-27] MEDS: Enoxaparin Sodium 40 MG/0.4 ML SYRINGE SC SCH (21:53)
[2020-08-28] MEDS: Vancomycin HCl 750 MG in Sodium Chloride 0.9% 250 ML 250 ML IVPB SCH ×2 (02:17→15:40)
[2020-08-28] MEDS: MEROPENEM 1 GM/50 ML 1 GM in Premix Bag 1 BAG IVPB SCH ×3 (05:36→21:09)
[2020-08-28] MEDS: Potassium Chloride 40 MEQ in Sodium Chloride 0.45% 1,000 ML IV SCH ×3 (05:37→21:14)
[2020-08-28 07:12] LABS: Hemoglobin 8.9 g/dL (12.0-16.0); Mean Corpuscular HGB CONC 30.8 g/dL (32.0-36.0); Mean Corpuscular Hemoglobin 28.7 pg (27.0-31.0); Mean Corpuscular Volume 93.2 fL (78.0-98.0); Mean Platelet Volume 6.9 fL (7.4-10.4); Platelet Count 527 thou/uL (130-400); RBC Distribution Width 16.8 % (11.5-14.5); White Blood Cell (WBC) Count 14.4 thou/uL (4.8-10.8)
[2020-08-28 07:20] LABS: Anion Gap 19 mmol/L (10-20); BUN (Urea Nitrogen) 4 mg/dL (9.8-20.1); Calc. Creatinine Clearance 97 mL/min (70-130); Calcium 7.8 mg/dL (7.8-10.44); Carbon Dioxide 22 mmol/L (23-31); Chloride 102 mmol/L (98-107); Potassium 4.4 mmol/L (3.5-5.1); Sodium 139 mmol/L (136-145)
[2020-08-28 07:28] LABS: Glucose 51 mg/dL (80-115)
[2020-08-28] MEDS: Bisoprolol Fumarate 5 MG TAB PO SCH (08:42)
[2020-08-28 09:50] LABS: Band 1 % (5-11); Eosinophils 2 % (0-10); Lymphocytes 14 % (21-51); MDiff Complete? YES; Monocytes 6 % (0-10); Neutrophil 77 % (42-75); Platelet Morphology Comment Appears Increased; Polychromasia SLIGHT = 2-3 cells (100X) (0-2/hpf)
--- NOTE | 2020-08-28 15:25 | PDOC.HOSPP ---
- Subjective Encounter Date: 08/28/20 Encounter Time: 10:25 Subjective: She is doing well. Her MAREK drain has very minimal fluid. Appears Dr. Vyas will be following her tomorrow. - Objective Vital Signs & Weight: Vital Signs (12 hours) Temp Pulse Resp BP Pulse Ox 08/28/20 08:00 96 08/28/20 07:21 98.1 F 65 18 127/74 96 Weight Admit Weight 153 lb 3.2 oz Weight 153 lb 3 oz I&O: 08/27/20 08/28/20 08/29/20 06:59 06:59 06:59 Intake Total 3960 3050 Output Total 10 15 Balance 3950 3035 Result Diagrams: 08/28/20 06:22 08/28/20 06:22 Additional Labs: Accuchecks 08/28/20 08:00 POC Glucose 77 Hospitalist ROS - Medication Medications: Active Medications Generic Name Dose Route Start Last Admin Trade Name Freq PRN Reason Stop Dose Admin Hydrocodone Bitart/Acetaminophen 2 tab 08/26/20 09:25 08/26/20 17:55 Hydrocodone/Acetaminophen 10/325 Mg Tablet PO 2 tab Q4H PRN Administration Pain 5-10 Bisoprolol Fumarate 5 mg 08/18/20 09:00 08/28/20 08:42 Bisoprolol Fumarate 5 Mg Tab PO 5 mg DAILY YESSENIA Administration Enoxaparin Sodium 40 mg 08/22/20 21:00 08/27/20 21:53 Enoxaparin Sodium 40 Mg/0.4 Ml Syringe SC 40 mg 2100 YESSENIA Administration Promethazine HCl 25 mg/ Sodium 51 mls @ 204 mls/hr 08/19/20 12:33 08/27/20 13:18 Chloride IVPB 51 mls Q6H PRN Administration Nausea/Vomiting Potassium Chloride 40 meq/ 1,020 mls @ 100 mls/hr 08/22/20 13:02 08/28/20 14:43 Sodium Chloride IV Not Given .[id number] YESSENIA Vancomycin HCl 750 mg/ Sodium 250 mls @ 250 mls/hr 08/23/20 14:00 08/28/20 02:17 Chloride IVPB 250 mls 0200,1400 YESSENIA Administration Meropenem 1 gm/ Device 50 mls @ 100 mls/hr 08/27/20 14:00 08/28/20 14:41 IVPB 50 mls Q8HR YESSENIA Administration Ondansetron HCl 4 mg 08/22/20 13:09 08/27/20 09:30 Ondansetron Pf 4 Mg/2 Ml Vial IVP 4 mg Q6H PRN Administration Nausea/Vomiting Sodium Chloride 10 ml 08/22/20 09:00 08/27/20 22:04 Flush - Normal Saline 10 Ml Syringe IVF 10 ml Q12HR YESSENIA Administration - Exam General Appearance: NAD, awake alert Eye: PERRL ENT: normocephalic atraumatic Neck: supple Heart: RRR Respiratory: CTAB, normal chest expansion Gastrointestinal: soft, normal bowel sounds Gastrointestinal - other findings: MAREK drain with less than 5 mL yellow fluid Neurological: cranial nerve grossly intact Psychiatric: A&O x 3 Hosp A/P - Plan (1) Perinephric abscess -History of nephrolithiasis with percutaneous nephrolithotomy for staghorn calculus in 2014 Acute on chronic pyelonephritis 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 Abscess in the retroperitoneal space following nephrectomy Status post simple left nephrectomy Status post exploratory laparotomy and abdominal washout due to retroperitoneal abscess Psoas abscess (2) Hypokalemia Code(s): E87.6 - HYPOKALEMIA Status: Acute (3) Renal cell cancer Code(s): C64.9 - MALIGNANT NEOPLASM OF UNSP KIDNEY, EXCEPT RENAL PELVIS Status: Chronic Qualifiers: Laterality: left Qualified Code(s): C64.2 - Malignant neoplasm of left kidney, except renal pelvis (4) Moderate protein malnutrition Code(s): E44.0 - MODERATE PROTEIN-CALORIE MALNUTRITION Status: Chronic (5) Chronic anemia Code(s): D64.9 - ANEMIA, UNSPECIFIED Status: Chronic - Plan * Perinephric Abscess- s/p I&D. * * -Dr. Vyas is following. Likely visit on Friday. * Cultures negative. * She is on IV antibiotics since with vancomycin and cefepime. Will change to p.o. antibiotics once white count trending down reasonably well. * * Pain-patient is on BUSINESS SYSTEMS ARCHITECT pump.--- We will put her on stool softener. * Hypokalemia resolved. * * Try to wean her off pain pump scheduled analgesic po * Patient weaned off from her BUSINESS SYSTEMS ARCHITECT pump Karius test has been sent out to find any fragments of DNA that would give us a clue for the pathogen until then will continue with the broad-spectrum antibiotic including Merrem and vancomycin. Amylase and lipase levels are in the normal range. Due to her nausea I also switched her antibiotics, as recommended by the ID to Merrem and vancomycin Walking program Patient lives alone We will try to arrange home health when we are ready to discharge her. Dr. Vyas will be coming tomorrow. Antibiotic patient per ID
--- NOTE | 2020-08-28 16:04 | PRG ---
DATE OF SERVICE: 08/28/2020 SUBJECTIVE: Feeling well, wants to go home. No respiratory symptoms or abdominal pain. No genitourinary symptoms. She is voiding in the bedside commode without difficulty. No diarrhea. OBJECTIVE: VITAL SIGNS: She has been afebrile for a long time now. Other vital signs are normal. Saturating good on room air. LUNGS: Clear. HEART: S1, S2, regular rate. ABDOMEN: Soft, not distended. EXTREMITIES: No edema. LABORATORY DATA: White cell count at 14.4, hemoglobin 8.9, platelets 527, 77% neutrophils, bands are down to 1%. Creatinine 0.66. Unfortunately, nothing in the cultures to guide us for therapeutic reasons. The Karius test is pending. ASSESSMENT AND DISCUSSION: Nephrolithiasis with prior percutaneous nephrolithotomy of a staghorn calculus in 2014, pyelonephritis, chronic and acute with renal cell cancer in situ, which has been removed entirely. Abscess, retroperitoneal space following nephrectomy, vary on the Karius test, but I think we will go ahead and place a PICC line and plan to treat with 2 different antimicrobials and set up orders for Case Management, and we will go ahead and order a PICC line now. Job ID: [id number]
--- NOTE | 2020-08-28 16:41 | PRG ---
DATE OF SERVICE: 08/28/2020 SUBJECTIVE: Overall, the patient tells me that she is feeling better. She has been up ambulating and feels that she can get around her room on her own other than managing the IV lines. Her nausea is much improved after switching antibiotics yesterday. No significant incisional pain. Still having mild to moderate abdominal pain at times, especially with movement. OBJECTIVE: VITAL SIGNS: Afebrile. Vitals stable. Minimal drain output. ABDOMEN: Soft, appropriately tender. Incision well approximated. No evidence of infection. EXTREMITIES: No peripheral edema. LABORATORY DATA: White count improving. Creatinine stable. ASSESSMENT AND PLAN: 1. Postoperative day #5, open drainage of left splenic fossa abscess. 2. Appreciate ID assistance planning PICC line with dual antimicrobial therapy at home. 3. Drain will remain until after she finishes antibiotic therapy. 4. I would like for her to be tolerating more oral intake over the next 24 hours or so before considering discharge either Friday or Friday. Job ID: [id number]
[2020-08-28] MEDS: Enoxaparin Sodium 40 MG/0.4 ML SYRINGE SC SCH (20:37)
[2020-08-29] MEDS: Vancomycin HCl 750 MG in Sodium Chloride 0.9% 250 ML 250 ML IVPB SCH ×2 (02:48→16:17)
[2020-08-29] MEDS: MEROPENEM 1 GM/50 ML 1 GM in Premix Bag 1 BAG IVPB SCH ×3 (06:56→21:02)
[2020-08-29 07:45] LABS: Anion Gap 16 mmol/L (10-20); BUN (Urea Nitrogen) 4 mg/dL (9.8-20.1); Calc. Creatinine Clearance 84 mL/min (70-130); Calcium 8.7 mg/dL (7.8-10.44); Carbon Dioxide 26 mmol/L (23-31); Chloride 99 mmol/L (98-107); Glucose 128 mg/dL (80-115); Potassium 4.4 mmol/L (3.5-5.1); Sodium 137 mmol/L (136-145)
[2020-08-29] MEDS: Potassium Chloride 40 MEQ in Sodium Chloride 0.45% 1,000 ML IV SCH ×2 (08:20→20:46)
[2020-08-29 08:49] LABS: #Basophils 0.1 thou/uL (0.0-0.2); #Eosinphils 0.2 thou/uL (0.0-0.7); #Monocytes 0.9 thou/uL (0.11-0.59); #Neutrophils 10.4 thou/uL (1.40-6.50); %Basophils 0.6 % (0.0-1.0); %Eosinophils 1.7 % (0.0-10.0); %Lymphocytes 20.5 % (21.0-51.0); %Monocytes 6.1 % (0.0-10.0); %Neutrophils 71.2 % (42.0-75.0); Hemoglobin 10.8 g/dL (12.0-16.0); Mean Corpuscular HGB CONC 31.8 g/dL (32.0-36.0); Mean Corpuscular Hemoglobin 29.8 pg (27.0-31.0); Mean Corpuscular Volume 93.7 fL (78.0-98.0); Mean Platelet Volume 7.4 fL (7.4-10.4); Platelet Count 566 thou/uL (130-400); RBC Distribution Width 17.1 % (11.5-14.5); Red Blood Cell (RBC) Count 3.62 mill/uL (4.20-5.40); White Blood Cell (WBC) Count 14.5 thou/uL (4.8-10.8)
[2020-08-29] MEDS: Bisoprolol Fumarate 5 MG TAB PO SCH (08:54)
[2020-08-29 09:18] LABS: MDiff Complete? YES; Platelet Morphology Comment Appears Increased; Polychromasia SLIGHT = 2-3 cells (100X) (0-2/hpf); Target Cells SLIGHT = 2-5 cells (100X) (0-1/hpf)
--- NOTE | 2020-08-29 14:00 | SPC ---
PICC PLACEMENT ULTRASOUND-GUIDED VENOUS ACCESS: (Peripherally inserted central catheter) DATE: 08/29/2020 HISTORY: 64-year-old female with left upper quadrant intra-abdominal abscess TECHNIQUE: Catheter caliber: 5 Liberian Catheter trim length:46.5 cm Catheter lumen number:single Catheter tip location:Superior vena cava/right atrial junction Vein accessed:left basilic Total fluoroscopy time: 0.8 min. Dose area product: 3056 mGy*cm^2 Signed, informed consent was obtained. A tourniquet was applied at the proximal aspect of the arm. Th e arm was prepped and draped in the usual sterile fashion. A 25-gauge needle was used to applied buffered lidocaine superficially. The vein was punctured with a 21-gauge micropuncture needle under u ltrasound guidance. A 0.018 inch guidewire was advanced through the micropuncture needle and into the vein. Under fluoroscopic guidance, the guidewire was advanced to the superior vena cava. The PICC was flushed and trimmed to the appropriate length. The micropuncture needle was exchanged over the guidewire for a 5 Liberian peel-away dilator sheath. The dilator was exchanged over the guidewire for t he PICC, which was then further advanced under fluoroscopy. The sheath and guidewire were removed. The PICC was flushed again and secured in place at the arm after adjustment of tip position. The mark ent tolerated the procedure well. There was no complication. IMPRESSION: Successful placement of PICC (peripherally inserted central catheter).
--- NOTE | 2020-08-29 14:10 | PDOC.HOSPP ---
- Subjective Encounter Date: 08/29/20 Encounter Time: 11:00 Subjective: Patient doing well. She is quite anxious to go home. Discussed with RN and outpatient case manager. PICC line to be placed today - Objective Vital Signs & Weight: Vital Signs (12 hours) Temp Pulse Resp BP Pulse Ox 08/29/20 11:52 98.7 F 76 16 139/85 96 08/29/20 07:28 98.0 F 76 18 134/87 95 Weight Admit Weight 153 lb 3.2 oz Weight 153 lb 3 oz I&O: 08/28/20 08/29/20 08/30/20 06:59 06:59 06:59 Intake Total 3050 Output Total 15 10 Balance 3035 -10 Result Diagrams: 08/29/20 06:59 08/29/20 06:59 Hospitalist ROS - Medication Medications: Active Medications Generic Name Dose Route Start Last Admin Trade Name Freq PRN Reason Stop Dose Admin Hydrocodone Bitart/Acetaminophen 2 tab 08/26/20 09:25 08/26/20 17:55 Hydrocodone/Acetaminophen 10/325 Mg Tablet PO 2 tab Q4H PRN Administration Pain 5-10 Bisoprolol Fumarate 5 mg 08/18/20 09:00 08/29/20 08:54 Bisoprolol Fumarate 5 Mg Tab PO 5 mg DAILY YESSENIA Administration Enoxaparin Sodium 40 mg 08/22/20 21:00 08/28/20 20:37 Enoxaparin Sodium 40 Mg/0.4 Ml Syringe SC 40 mg 2100 YESSENIA Administration Promethazine HCl 25 mg/ Sodium 51 mls @ 204 mls/hr 08/19/20 12:33 08/27/20 13:18 Chloride IVPB 51 mls Q6H PRN Administration Nausea/Vomiting Potassium Chloride 40 meq/ 1,020 mls @ 100 mls/hr 08/22/20 13:02 08/28/20 21:14 Sodium Chloride IV 1,020 mls .[id number] YESSENIA Administration Vancomycin HCl 750 mg/ Sodium 250 mls @ 250 mls/hr 08/23/20 14:00 08/29/20 02:48 Chloride IVPB 250 mls 0200,1400 YESSENIA Administration Meropenem 1 gm/ Device 50 mls @ 100 mls/hr 08/27/20 14:00 08/29/20 06:56 IVPB 50 mls Q8HR YESSENIA Administration Ondansetron HCl 4 mg 08/22/20 13:09 08/27/20 09:30 Ondansetron Pf 4 Mg/2 Ml Vial IVP 4 mg Q6H PRN Administration Nausea/Vomiting Sodium Chloride 10 ml 08/22/20 09:00 08/28/20 20:37 Flush - Normal Saline 10 Ml Syringe IVF 10 ml Q12HR YESSENIA Administration - Exam General Appearance: NAD, awake alert Eye: PERRL ENT: normocephalic atraumatic Neck: supple Heart: RRR Respiratory: CTAB, normal chest expansion Gastrointestinal: soft, normal bowel sounds Neurological: cranial nerve grossly intact, no focal deficits Psychiatric: normal affect, normal behavior, A&O x 3 Hosp A/P - Plan (1) Perinephric abscess -History of nephrolithiasis with percutaneous nephrolithotomy for staghorn ca lculus in 2014 Acute on chronic pyelonephritis 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 Abscess in the retroperitoneal space following nephrectomy Status post simple left nephrectomy Status post exploratory laparotomy and abdominal washout due to retroperitoneal abscess Psoas abscess (2) Hypokalemia Code(s): E87.6 - HYPOKALEMIA Status: Acute (3) Renal cell cancer Code(s): C64.9 - MALIGNANT NEOPLASM OF UNSP KIDNEY, EXCEPT RENAL PELVIS Status: Chronic Qualifiers: Laterality: left Qualified Code(s): C64.2 - Malignant neoplasm of left kidney, except renal pelvis (4) Moderate protein malnutrition Code(s): E44.0 - MODERATE PROTEIN-CALORIE MALNUTRITION Status: Chronic (5) Chronic anemia Code(s): D64.9 - ANEMIA, UNSPECIFIED Status: Chronic - Plan * Perinephric Abscess- s/p I&D. * * -Dr. Vyas is following. Likely visit on Friday. * Cultures negative. * She is on IV antibiotics since with vancomycin and cefepime. Will change to p.o. antibiotics once white count trending down reasonably well. * * Pain-patient is on SORT WORKER pump.--- We will put her on stool softener. * Hypokalemia resolved. * * Try to wean her off pain pump scheduled analgesic po * Patient weaned off from her SORT WORKER pump Karius test has been sent out to find any fragments of DNA that would give us a clue for the pathogen until then will continue with the broad-spectrum antibiotic including Merrem and vancomycin. Amylase and lipase levels are in the normal range. Due to her nausea I also switched her antibiotics, as recommended by the ID to Merrem and vancomycin Walking program Patient lives alone We will try to arrange home health when we are ready to discharge her. Dr. Vyas will be coming tomorrow. Antibiotic patient per ID 29th She is quite anxious to go home. Discussed with RN and outpatient case manager. PICC line to be placed today Not sure she would be able to go home as antibiotic requirement is 3 times a day IV infusion with meropenem and vancomycin twice a day. Home nursing may not be able to visit 3 times a day.
--- NOTE | 2020-08-29 15:43 | PRG ---
DATE OF SERVICE: 08/29/2020 SUBJECTIVE: Overall, doing much better than yesterday. She is tolerating more diet and is only having very minimal nausea occasionally. She denies much discomfort and has been ambulating on her own throughout the room. She is having bowel movements. OBJECTIVE: VITAL SIGNS: Afebrile. Vitals stable. LUNGS: Unlabored breathing. HEART: Regular rate and rhythm. ABDOMEN: Soft, nontender, and nondistended. Anterior subcostal incision well approximated with sutures. No evidence of infection. Minimal drain output, serosanguineous. SKIN: Warm and dry. EXTREMITIES: No peripheral edema. ASSESSMENT AND PLAN: Postoperative day 7, open drainage of splenic fossa abscess. Continue IV antibiotics as directed by ID, she is getting a PICC line today with plans for IV antibiotics at home. Overall, she is stable for discharge and is ready to go she says. I will see her next week for staple removal and we will revisit her antibiotic therapy at that time. Likely her drain will remain until at least that time possibly longer. Job ID: [id number]
[2020-08-29] MEDS: Enoxaparin Sodium 40 MG/0.4 ML SYRINGE SC SCH (20:47)
[2020-08-30] MEDS: Vancomycin HCl 750 MG in Sodium Chloride 0.9% 250 ML 250 ML IVPB SCH (01:01)
[2020-08-30] MEDS: Potassium Chloride 40 MEQ in Sodium Chloride 0.45% 1,000 ML IV SCH ×2 (05:05→15:20)
[2020-08-30] MEDS: MEROPENEM 1 GM/50 ML 1 GM in Premix Bag 1 BAG IVPB SCH ×2 (05:05→15:19)
[2020-08-30 06:16] LABS: Eosinophils 2 % (0-10); Hemoglobin 9.8 g/dL (12.0-16.0); Lymphocytes 18 % (21-51); MDiff Complete? YES; Mean Corpuscular HGB CONC 31.5 g/dL (32.0-36.0); Mean Corpuscular Hemoglobin 29.4 pg (27.0-31.0); Mean Corpuscular Volume 93.5 fL (78.0-98.0); Mean Platelet Volume 6.6 fL (7.4-10.4); Monocytes 5 % (0-10); Neutrophil 75 % (42-75); Platelet Count 517 thou/uL (130-400); Platelet Morphology Comment Appears Increased; RBC Distribution Width 17.7 % (11.5-14.5); Red Blood Cell (RBC) Count 3.31 mill/uL (4.20-5.40); White Blood Cell (WBC) Count 14.1 thou/uL (4.8-10.8)
[2020-08-30] MEDS: Bisoprolol Fumarate 5 MG TAB PO SCH (08:38)
--- NOTE | 2020-08-30 12:44 | PDOC.HOSPP ---
- Subjective Encounter Date: 08/30/20 Encounter Time: 11:25 Subjective: Patient is so anxious to go home she has been saying that last 3 days. I talked to the insurance case manager. We are trying to get approval IV antibiotic infusion company. And home health care nursing can teach the patient and the family on how to increase the IV antibiotics. - Objective Vital Signs & Weight: Vital Signs (12 hours) Temp Pulse Resp BP Pulse Ox 08/30/20 11:45 98.2 F 77 16 109/75 96 08/30/20 06:59 98.2 F 80 16 128/82 96 Weight Admit Weight 153 lb 3.2 oz Weight 153 lb 3 oz I&O: 08/29/20 08/30/20 08/31/20 06:59 06:59 06:59 Intake Total 1870 Output Total 10 8 Balance -10 1862 Result Diagrams: 08/30/20 05:10 08/29/20 06:59 Hospitalist ROS - Medication Medications: Active Medications Generic Name Dose Route Start Last Admin Trade Name Freq PRN Reason Stop Dose Admin Hydrocodone Bitart/Acetaminophen 2 tab 08/26/20 09:25 08/26/20 17:55 Hydrocodone/Acetaminophen 10/325 Mg Tablet PO 2 tab Q4H PRN Administration Pain 5-10 Bisoprolol Fumarate 5 mg 08/18/20 09:00 08/30/20 08:38 Bisoprolol Fumarate 5 Mg Tab PO 5 mg DAILY YESSENIA Administration Enoxaparin Sodium 40 mg 08/22/20 21:00 08/29/20 20:47 Enoxaparin Sodium 40 Mg/0.4 Ml Syringe SC 40 mg 2100 YESSENIA Administration Promethazine HCl 25 mg/ Sodium 51 mls @ 204 mls/hr 08/19/20 12:33 08/27/20 13:18 Chloride IVPB 51 mls Q6H PRN Administration Nausea/Vomiting Potassium Chloride 40 meq/ 1,020 mls @ 100 mls/hr 08/22/20 13:02 08/30/20 05:05 Sodium Chloride IV Not Given .[id number] YESSENIA Vancomycin HCl 750 mg/ Sodium 250 mls @ 250 mls/hr 08/23/20 14:00 08/30/20 01:01 Chloride IVPB 250 mls 0200,1400 YESSENIA Administration Meropenem 1 gm/ Device 50 mls @ 100 mls/hr 08/27/20 14:00 08/30/20 05:05 IVPB 50 mls Q8HR YESSENIA Administration Ondansetron HCl 4 mg 08/22/20 13:09 08/27/20 09:30 Ondansetron Pf 4 Mg/2 Ml Vial IVP 4 mg Q6H PRN Administration Nausea/Vomiting Sodium Chloride 10 ml 08/22/20 09:00 08/30/20 08:39 Flush - Normal Saline 10 Ml Syringe IVF 10 ml Q12HR YESSENIA Administration - Exam General Appearance: NAD, awake alert Eye: PERRL ENT: normocephalic atraumatic Neck: supple Heart: RRR, normal peripheral pulses Respiratory: CTAB, normal chest expansion Gastrointestinal: soft, normal bowel sounds Neurological: cranial nerve grossly intact, no focal deficits Psychiatric: normal affect, normal behavior, A&O x 3 Hosp A/P - Plan (1) Perinephric abscess -History of nephrolithiasis with percutaneous nephrolithotomy for staghorn calculus in 2014 Acute on chronic pyelonephritis 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 Abscess in the retroperitoneal space following nephrectomy Status post simple left nephrectomy Status post exploratory laparotomy and abdominal washout due to retroperitoneal abscess Psoas abscess (2) Hypokalemia Code(s): E87.6 - HYPOKALEMIA Status: Acute (3) Renal cell cancer Code(s): C64.9 - MALIGNANT NEOPLASM OF UNSP KIDNEY, EXCEPT RENAL PELVIS Status: Chronic Qualifiers: Laterality: left Qualified Code(s): C64.2 - Malignant neoplasm of left kidney, except renal pelvis (4) Moderate protein malnutrition Code(s): E44.0 - MODERATE PROTEIN-CALORIE MALNUTRITION Status: Chronic (5) Chronic anemia Code(s): D64.9 - ANEMIA, UNSPECIFIED Status: Chronic - Plan * Perinephric Abscess- s/p I&D. * * -Dr. Vyas is following. Likely visit on Friday. * Cultures negative. * She is on IV antibiotics since with vancomycin and cefepime. Will change to p.o. antibiotics once white count trending down reasonably well. * * Pain-patient is on CAR TOP BOLTER pump.--- We will put her on stool softener. * Hypokalemia resolved. * * Try to wean her off pain pump scheduled analgesic po * Patient weaned off from her CAR TOP BOLTER pump Karius test has been sent out to find any fragments of DNA that would give us a clue for the pathogen until then will continue with the broad-spectrum antibiotic including Merrem and vancomycin. Amylase and lipase levels are in the normal range. Due to her nausea I also switched her antibiotics, as recommended by the ID to Merrem and vancomycin Walking program Patient lives alone We will try to arrange home health when we are ready to discharge her. Dr. Vyas will be coming tomorrow. Antibiotic patient per ID 29th She is quite anxious to go home. Discussed with RN and insurance case manager. PICC line to be placed today Not sure she would be able to go home as antibiotic requirement is 3 times a day IV infusion with meropenem and vancomycin twice a day. Home nursing may not be able to visit 3 times a day. 30th Drain to be left in place until as she completed her antibiotics. We are waiting for the infusion company to arrange the antibiotics then home health care nursing can be looked into and they can teach patient and the family and couple of visits and the rest can be managed by the patient. She needs a weekly labs CBC CMP and CRP that can be arranged with the home nursing visit once a week to draw the lab. Otherwise she can also go to infectious disease clinic to get weekly lab done.
[2020-08-30 13:48] LABS: Vancomycin, Trough 17.3 ug/mL
--- NOTE | 2020-08-30 15:24 | PRG ---
DATE OF SERVICE: 08/30/2020 SUBJECTIVE: Ms. Alves is feeling well. She wants to go home and denies any pain. No respiratory symptoms. No diarrhea. OBJECTIVE: VITAL SIGNS: Showed normal temperature. BP 109/75, heart rate 77, respiratory rate 16. LUNGS: Clear. HEART: S1-S2. Regular rate. ABDOMEN: Soft, not distended. She is voiding in the toilet. LABORATORY DATA: White cell count is 14,000, hemoglobin 9.8, platelets 517, 75% neutrophils. Creatinine 0.76. Thus far no cultures in the MAREK fluid, I think this is the final result, likewise in the pleural fluid as well. The Karius test is still pending. There are no new imaging studies. ASSESSMENT AND DISCUSSION: Nephrolithiasis, percutaneous nephrolithotomy of a staghorn calculus 2014, pyelonephritis, chronic and acute renal cell cancer in situ, removed in its entirety. Retroperitoneal space abscess following nephrectomy. No sample submitted for culture, so she is currently on carbapenem and I will have to assume worst case scenario with a resistant pathogen until we have the results of the Karius test. It may not give us any subsidy to delineate the outpatient therapy. She may have to go on ertapenem for discharge planning and a PICC line. 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 So, now I am going to switch her to Rocephin 2 g daily instead of ertapenem. The duration of therapy will be the same. After 1 or 2 weeks, we can switch her to oral Keflex. Job ID: [id number]
[2020-08-30 15:36] VITALS: BP 109/74; TEMP 98.5
--- NOTE | 2020-08-31 12:23 | PDOC.DS.DS ---
Provider - Provider Date of Admission: 08/17/20 18:09 Admitting Provider: Ole Gregorio DO Primary Care Physician: [facility] Clinic Course - Hospital Course Hospital Course: 64-year-old female presented with (1) Perinephric abscess -History of nephrolithiasis with percutaneous nephrolithotomy for staghorn calculus in 2014 Acute on chronic pyelonephritis 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 Abscess in the retroperitoneal space following nephrectomy Status post simple left nephrectomy Status post exploratory laparotomy and abdominal washout due to retroperitoneal abscess Psoas abscess (2) Hypokalemia Code(s): E87.6 - HYPOKALEMIA Status: Acute (3) Renal cell cancer Code(s): C64.9 - MALIGNANT NEOPLASM OF UNSP KIDNEY, EXCEPT RENAL PELVIS Status: Chronic Qualifiers: Laterality: left Qualified Code(s): C64.2 - Malignant neoplasm of left kidney, except renal pelvis (4) Moderate protein malnutrition Code(s): E44.0 - MODERATE PROTEIN-CALORIE MALNUTRITION Status: Chronic (5) Chronic anemia Code(s): D64.9 - ANEMIA, UNSPECIFIED Status: Chronic - Plan * Perinephric Abscess- s/p I&D. * * -Dr. Vyas is following. Likely visit on Friday. * Cultures negative. * She is on IV antibiotics since with vancomycin and cefepime. Will change to p.o. antibiotics once white count trending down reasonably well. * * Pain-patient is on [employer] pump.--- We will put her on stool softener. * Hypokalemia resolved. * * Try to wean her off pain pump scheduled analgesic po * Patient weaned off from her MANAGER EM[employer]MENT pump Karius test has been sent out to find any fragments of DNA that would give us a clue for the pathogen until then will continue with the broad-spectrum antibiotic including Merrem and vancomycin. Amylase and lipase levels are in the normal range. Due to her nausea I also switched her antibiotics, as recommended by the ID to Merrem and vancomycin Walking program Patient lives alone We will try to arrange home health when we are ready to discharge her. Dr. Vyas will be coming tomorrow. Antibiotic patient per ID She is quite anxious to go home. Discussed with RN and case assembler. PICC line to be placed today Not sure she would be able to go home as antibiotic requirement is 3 times a day IV infusion with meropenem and vancomycin twice a day. Home nursing may not be able to visit 3 times a day. 30th Drain to be left in place until as she completed her antibiotics. We are waiting for the infusion company to arrange the antibiotics then home health care nursing can be looked into and they can teach patient and the family and couple of visits and the rest can be managed by the patient. She needs a weekly labs CBC CMP and CRP that can be arranged with the home nursing visit once a week to draw the lab. Otherwise she can also go to infectious disease clinic to get weekly lab done. Discharge later in the evening. She will follow-up with Dr. Vyas and primary care physician. Weekly labs of CBC CMP and CRP to be faxed to infectious disease clinic, attention Dr. Muñoz. Resuscitation Status: 08/17/20 21:43 Resuscitation Status Routine Resuscitation Status: FULL: Full Resuscitation - Labs Lab Results: 08/30/20 05:10 08/29/20 06:59 Abnormal Lab Results - Last 48 hrs 08/30/20 05:10: WBC 14.1 H, RBC 3.31 L, Hgb 9.8 L, Hct 31.0 L, MCHC 31.5 L, RDW 17.7 H, Plt Count 517 H, MPV 6.6 L, Lymphocytes % (Manual) 18 L, Plt Morphology Comment Appears Increased H Microbiology - Entire Visit 08/24/20 11:52 Chandan Fluid - Abscess Bacterial Culture - Final 08/18/20 10:37 Pleural fluid Body Fluid Culture - Final 08/17/20 17:27 Venous blood - Right Arm Blood Culture - Final NO GROWTH IN 5 DAYS 08/17/20 17:27 Venous blood - Left Arm Blood Culture - Final NO GROWTH IN 5 DAYS - Physical Exam Vitals: Weight Admit Weight 153 lb 3.2 oz Weight 153 lb 3 oz Physical Exam: The patient was seen and examined on the day of discharge. materials planning manager called later in the evening that the infusion company approved for IV antibiotic. Patient will be discharged today. Plan - Discharge Medications Prescriptions: Meropenem 1 gm/50 ml [Merrem 1 gm/50 ml] 1 gm IVPB Q8HR 30 Days #90 bag traMADol HCl [Ultram] 50 mg PO Q6H PRN 20 Days #30 tab PRN Reason: Pain 1-4 Vancomycin HCl 750 mg IVPB 0200,1400 30 Days #60 vial Home Medications: Medication Instructions Recorded Confirmed Type Bisoprolol/Hydrochlorothiazide 1 each PO DAILY 07/19/20 08/18/20 History [Bisoprolol-Hctz 10-6.25 mg Tab] Meropenem 1 gm/50 ml [Merrem 1 1 gm IVPB Q8HR 30 Days #90 bag 08/29/20 Rx gm/50 ml] Vancomycin HCl 750 mg IVPB 0200,1400 30 Days #60 08/29/20 Rx vial traMADol HCl [Ultram] 50 mg PO Q6H PRN 20 Days #30 tab 08/29/20 Rx Allergies: No Known Allergies Allergy (Verified 07/21/20 03:22) - Discharge Instructions Discharge Instructions:: Follow-up with the PCP in 1 week Follow-up with Dr. Muñoz ID clinic with weekly labs. Follow-up with Dr. Vyas per their clinic appointment Activity:: Activity as Tolerated Nourishment:: Regular Diet - Follow up Plan Referrals: [facility] Outpatient Oncology [Outside] - 08/31/20 2:00 pm [facility] [Primary Care Provider] - Jose Vyas MD [Active] - Nico Muñoz MD [Active] - Disposition: HOME Quality - Care Measures CORE MEASURES:: N/A
[2020-08-31 12:33] LABS: Ref Lab Test Ordered KARIUS; Reference Lab Name KARIUS
[2020-08-31 18:12] LABS: Lipase-Fluid 18 U/L (.)
== END 2020-08-30 18:48 | disposition home or self-care (01) | DRG 856 ==
LOC: ERS 13:53 → T4-A 18:09
PROVIDERS: ADMIT Family Medicine; ATTEND Internal Medicine
PROC: 0W9B3ZZ Drainage of Left Pleural Cavity, Percutaneous Approach (ICD-10-PCS; 2020-08-18)
PROC: BB4BZZZ Ultrasonography of Pleura (ICD-10-PCS; 2020-08-18)
PROC: 0W9H00Z Drainage of Retroperitoneum with Drainage Device, Open Approach (ICD-10-PCS; principal; 2020-08-22)
PROC: 02HV33Z Insertion of Infusion Device into Superior Vena Cava, Percutaneous Approach (ICD-10-PCS; 2020-08-23)
PROC: B548ZZA Ultrasonography of Superior Vena Cava, Guidance (ICD-10-PCS; 2020-08-23)
PROC: 02HV33Z Insertion of Infusion Device into Superior Vena Cava, Percutaneous Approach (ICD-10-PCS; 2020-08-29)
PROC: B548ZZA Ultrasonography of Superior Vena Cava, Guidance (ICD-10-PCS; 2020-08-29)
PROC: 02PYX3Z Removal of Infusion Device from Great Vessel, External Approach (ICD-10-PCS; 2020-08-29)
DX: K68.11 Postprocedural retroperitoneal abscess (principal); N15.1 Renal and perinephric abscess; A41.9 Sepsis, unspecified organism; J90 Pleural effusion, not elsewhere classified; C64.2 Malignant neoplasm of left kidney, except renal pelvis; E44.0 Moderate protein-calorie malnutrition; N11.9 Chronic tubulo-interstitial nephritis, unspecified; N10 Acute pyelonephritis; T81.49XA Infection following a procedure, other surgical site, initial encounter; Z20.828 Contact with and (suspected) exposure to other viral communicable diseases; I10 Essential (primary) hypertension; E11.9 Type 2 diabetes mellitus without complications; Z96.651 Presence of right artificial knee joint; F41.9 Anxiety disorder, unspecified; F32.9 Major depressive disorder, single episode, unspecified; Y83.8 Other surgical procedures as the cause of abnormal reaction of the patient, or of later complication, without mention of misadventure at the time of the procedure; D64.9 Anemia, unspecified; E87.6 Hypokalemia; Z90.710 Acquired absence of both cervix and uterus; Z90.49 Acquired absence of other specified parts of digestive tract; Z68.24 Body mass index [BMI] 24.0-24.9, adult
CPT/HCPCS: 36415; 36416; 36569; 74160; 74177; 76942; 80048; 80053; 80202; 82150; 82945; 83036; 83605; 83615; 83690; 83735; 83986; 84100; 84157; 84484; 85025; 85610; 85730; 86850; 86900; 86901; 87040; 87070; 87205; 87635; 93005; 94760; 96365; 96367; 96375; C1751; J0692; J1170; J1650; J2185; J2250; J2270; J2405; J2550; J2704; J3010; J3370; J3475; J3480; J3490; J7050; Q9967; U0003